=== PATIENT | male | born 1970 | race Hispanic/Latino ===

== ENCOUNTER 2024-06-04 13:47 | Emergency (ER) | payer MEDICARE, SELFPAY ==
--- OUTSIDE RECORDS SUMMARY | 2024-06-04 13:49 | XMS_ITS | Encounter Summary ---
Author Organization [facility] Address [address] [place] [address] Phone Care Team Providers Care Accounting Auditor Name Role Phone Allie Hunter MD Primary Care Provider [phone] Arun Saleh MD Unavailable [phone] Lin Chau Primary Care Provider + Jennie Payne OPTICAL GOODS WORKER Unavailable Unavailab Marion Albert APRN, ACCOUNTING FILE CLERK Unavailable +- [phone] Hortencia Galvez DO Primary Care Provider [phone] Reason for Visit * Reason Comments Medication Refill Encounter Details Date Type Department Care Team (Late st Contact Info) Description 02/28/2023 Refill [facility] - [facility] [address] [place] [address] Allie Hunter MD [address] [place] [address] Medication Refill Social History Tobacco Use Types Packs/Day Years Used Date Smoking Tobacco: Former Cigarettes 1 33 0 12/19/1983 - 09/13/2016 Smokeless Tobacco: Never Alcohol Use Standard Drinks/Week Comments Yes 3 (1 standard drink = 0.6 oz pur e alcohol) Social PHQ-2 Answer Date Recorded Total Score - Questions 1-9 0 04/2022 Education Answer Date Recorded What is the highest level of school you have completed or the highest degree you have received? Bachelor's degree (e.g., BA, AB, BS) 07/01/2020 Sexually Active Control Partners Comments Yes None Female Sex and Gender Information Value Date Recorded Sex Assigned at Not on file Legal Sex Male 10:26 PM CDT Gender Identity Not on file Sexual Orientation Not on file COVID-19 Exposure Response Date Recorded In the last 10 days, have yo u been in contact with someone who was confirmed or suspected to have Coronavirus/COVID-19? No / Unsure 02/25/2023 1:57 PM RESEARCH COORDINATOR documented as of this encounter Miscellaneous Notes * Telephone Encounter - Spring Leung RN - 02/28/2023 12:40 PM RESEARCH COORDINATOR Medication failed the protocol, provider to review and approve the medication order if appropriate. Requested Prescriptions Pending Prescriptions Disp Refills amitriptyline (ELAVIL) 25 MG Tablet [Pharmacy Med Name: Amitriptyline HCl 25 MG Oral Tablet] 90 Tablet 0 Sig: TAKE 1 TABLET BY MOUTH NIGHTLY Not Delegated - Tricyclic Agents Protocol Failed - 02/28/2023 12:38 PM Failed - This refill cannot be delegated Passed - Visit with relevant provider in past 12 months or upcoming 90 days Recent Visits Date Type Provider Dept 02/17/23 Office Visit Allie Hunter MD [facility] 08/27/22 Office Visit Allie Hunter MD [facility] 06/26/22 Office Visit Allie Hunter MD [facility] 06/17/22 Office Visit Hao Marley APRN, LIVE TRUCK TECHNICIAN [facility] [place] Showing recent visits within past 365 days and meeting all other requirements Future Appointments Date Type Provider Dept 04/07/23 Appointment Lin Chau, FARZAD [facility] [place] Showing future appointments within next 90 days and meeting all other requirements atorvastatin (LIPITOR) 40 MG Tablet [Pharmacy Med Name: Atorvastatin Calcium 40 MG Oral Tablet] 90 Tablet 0 Sig: Take 1 tablet by mouth once daily Hmg CoA Reductase Inhibitors Protocol Failed - 02/28/2023 12:38 PM Failed - CMP in past 12 months SODIUM Date Value Ref Range Status 02/22/2023 142 136 - 145 mmol/L Final POTASSIUM Date Value Ref Range Status 02/22/2023 4.9 3.5 - 5.1 mmol/L Final CHLORIDE Date Value Ref Range Status 02/22/2023 106 98 - 107 mmol/L Final CO2, VENOUS Date Value Ref Range Status 02/22/2023 26 22 - 30 mmol/L Final ANION GAP Date Value Ref Range Status 02/22/2023 14.9 <18.0 mmol/L Final GLUCOSE Date Value Ref Range Status 02/22/2023 88 70 - 99 mg/dL Final BUN Date Value Ref Range Status 02/22/2023 10 8 - 26 mg/dL Final CREATININE - POCT Date Value Ref Range Status 10/14/2022 1.0 0.6 - 1.3 mg/dL Final CREATININE, BLOOD Date Value Ref Range Status 02/22/2023 1.01 0.70 - 1.30 mg/dL Final BUN/CREATININE RATIO Date Value Ref Range Status 02/22/2023 10 (L) 12 - 20 ratio Final TOTAL PROTEIN Date Value Ref Range Status 11/03/2022 7.0 6.0 - 8.3 g/dL Final ALBUMIN Date Value Ref Range Status 11/03/2022 4.2 3.5 - 5.0 g/dL Final Comment: The colormetric methods used for the determination of Albumin may lead to falsely elevated test results in patients suffering from renal failure or insufficiency due to interference with other proteins. A/G RATIO Date Value Ref Range Status 11/03/2022 1.5 1.0 - 2.0 Final CALCIUM Date Value Ref Range Status 02/22/2023 9.4 8.7 - 10.5 mg/dL Final SGOT (AST) Date Value Ref Range Status 11/03/2022 34 <=40 U/L Final SGPT (ALT) Date Value Ref Range Status 11/03/2022 36 <=41 U/L Final ALKALINE PHOSPHATASE Date Value Ref Range Status 11/03/2022 124 40 - 130 U/L Final GFR, EST. NONAFRICAN Date Value Ref Range Status 02/22/2023 >60 >=60 Final GFR, EST. Date Value Ref Range Status 02/22/2023 >60 >=60 Final GFR, ESTIMATED Date Value Ref Range Status 02/22/2023 >60 >=60 Final Comment: Creatinine Clearance is the preferred criteria for selecting drug dose adjustments in renally impaired patients. The GFR is provided as additional pertinent clinical information. GFR is reported in mL/min/1.73 sq m. Calculation based on the Chronic Kidney Disease Epidemiology Collaboration (CKD- EPI) equation refitwithout adjustment for race. IS THE PATIENT REQUIRED TO BE FASTING? Date Value Ref Range Status 11/03/2022 No Final Passed - Visit with relevant provider in past 12 months or upcoming 90 days Recent Visits Date Type Provider Dept 02/17/23 Office Visit Allie Hunter MD [facility] [place] 08/27/22 Office Visit Allie Hunter MD [facility] 06/26/22 Office Visit Allie Hunter MD [facility] 06/17/22 Office Visit Hao Marley, LAP MAKER, LIVE TRUCK TECHNICIAN [facility] [place] Showing recent visits within past 365 days and meeting all other requirements Future Appointments Date Type Provider Dept 04/07/23 Appointment Lin Chau, PAC [facility] [place] Showing future appointments within next 90 days and meeting all other requirements Passed - Lipid panel in past 12 months LDL Date Value Ref Range Status 11/03/2022 63 5 - 130 mg/dL Final HDL CHOLESTEROL Date Value Ref Range Status 11/03/2022 43.3 >40 mg/dL Final CHOLESTEROL Date Value Ref Range Status 11/03/2022 137 <200 mg/dL Final TRIGLYCERIDES Date Value Ref Range Status 11/03/2022 156 (H) <150 mg/dL Final VLDL Date Value Ref Range Status 11/03/2022 31 5 - 55 mg/dL Final CHOL/HDL RATIO Date Value Ref Range Status 11/03/2022 3.2 0.0 - 4.4 Final NON-HDL CHOLESTEROL Date Value Ref Range Status 11/03/2022 93.7 <130 mg/dL Final ARCH COORDINATOR documented in this encounter Plan of Treatment Upcoming Encounters Date Type Department Care Team (Late st Contact Info) Description 06/09/2024 2:15 PM RESEARCH COORDINATOR Procedure Visit [facility] - Neurology [facility] [address] [place] [address] Arun Saleh MD [address] [place] [address] documented as of this encounter Visit Diagnoses Not on filedocumented in this encounter Additional Health Concerns Assessment Noted Time PHQ-9 Depression Total Score: 0 02/18/20 23 12:18 PM CDT documented as of this encounter Care Teams Accounting Auditor Relationship Specialty Start Date End Date Allie Hunter MD [address] [place] [address] PCP - General Family Medicine 10/16/15 05/11/23 Lin Chau, [facility] [address] [place] [address] PCP - General Physician Neonatal Intensive Care Nurse 05/12/23 04/06/24 Hortencia Galvez DO 2 [facility] [place] [address] [address] PCP - General Family Medicine 04/07/24 Arun Saleh MD [address] [place] [address] Consulting Physician Neurology 06/30/17 Jennie Payne, [place] Design Engineering Manager Lubricator Granulator 05/17/23 11/12/23 Marion Swanson APRN, ACCOUNTING FILE CLERK [address] [place] [address] Nurse Practitioner Advanced Practice Nurse 04/01/22 documented as of this encounter
--- OUTSIDE RECORDS SUMMARY | 2024-06-04 13:49 | XMS_ITS | Encounter Summary ---
Author Organization [facility] Address [address] [place] [address] Phone Care Team Providers Care Referral Clerk Name Role Phone Allie Hutner MD Primary Care Provider [phone] Arun Saleh MD Unavailable [phone] Lin Chau Primary Care Provider + Jennie Payne STOCK BROKER SUPERVISOR Unavailable Unavailab Marion Albert APRN, NEW MEDIA STRATEGIST Unavailable [phone]- [phone] Hortencia Galvez DO Primary Care Provider [phone] Reason for Visit * Reason Comments Medication Refill Encounter Details Date Type Department Care Team (Late st Contact Info) Description 05/06/2022 Refill [facility] - Family Medicine [facility] [address] [place] [address] Allie Hunter MD [address] [place] [address] Medication Refill Social History Tobacco Use Types Packs/Day Years Used Date Smoking Tobacco: Former Cigarettes 1 33 0 12/19/1983 - 09/13/2016 Smokeless Tobacco: Never Alcohol Use Standard Drinks/Week Comments Yes 3 (1 standard drink = 0.6 oz pur e alcohol) Social PHQ-2 Answer Date Recorded Total Score - Questions 1-9 5 07/0 09/2021 Education Answer Date Recorded What is the [...] on file Sexual Orientation Not on file documented as of this encounter Miscellaneous Notes * Telephone Encounter - Danni Contreras RN - 05/06/2022 9:28 AM CST Medication failed the protocol, provider to review and approve the medication order if appropriate. Requested Prescriptions Pending Prescriptions Disp Refills Diclofenac Sodium (VOLTAREN) 1 % Gel [Pharmacy Med Name: DICLOFENAC SODIUM 1% GEL] 100 g 1 Sig: APPLY ONE GRAM 3-4 TIMES DAILY TO PAINFUL AREA Topical Anti-inflammatory Protocol Passed - 05/06/2022 12:36 AM Passed - Visit with relevant provider in past 12 months or upcoming 90 days Recent Visits Date Type Provider Dept 02/24/22 Office Visit Allie Hunter MD [facility] 10/22/21 Office Visit Allie Hunter MD [facility] 07/23/21 Office Visit Allie Hunter MD [facility] 05/14/21 Office Visit Allie Hunter MD [facility] [place] Showing recent visits within past 365 days and meeting all other requirements Future Appointments No visits were found meeting these conditions. Showing future appointments within next 90 days and meeting all other requirements CY MANAGER documented in this encounter Plan of Treatment Upcoming Encounters Date Type Department Care Team (Late st Contact Info) Description 06/09/2024 2:15 PM AGENCY MANAGER [facility] [place] [address] [place] [address] Arun Saleh MD [address] [place] [address] documented as of this encounter Visit Diagnoses Not on filedocumented in this encounter Additional Health Concerns Assessment Noted Time PHQ-9 Depression Total Score: 5 10/23/19 22 2:00 PM CDT documented as of this encounter Care Teams Referral Clerk Relationship Specialty Start Date End Date Allie Hunter MD [address] [place] [address] PCP - General Family Medicine 10/16/15 05/11/23 Lin Chau PAC [address] [place] [address] PCP - General Physician Mud Car Worker 05/12/23 04/06/24 Hortencia Galvez, [address] [address] PCP - General Family Medicine 04/07/24 Arun Saleh MD [address] [place] [address] Consulting Physician Neurology 06/30/17 Jennie Payne, STOCK BROKER SUPERVISOR [place] Holistic Health Practitioner Motor Vehicles Inspector 05/17/23 11/12/23 Marion Swanson, METALIZING MACHINE OPERATOR, NEW MEDIA STRATEGIST [address] [place] [address] Nurse Practitioner Advanced Practice Nurse 04/01/22 documented as of this encounter
--- OUTSIDE RECORDS SUMMARY | 2024-06-04 13:49 | XMS_ITS | Clinical Summary ---
Author Organization [facility] [id number] [facility] Address [address] [place] [address] Care Team Providers Care Canal Equipment Mechanic Name Role Phone Allie Hunter MD Primary Care Provider [phone] Yakov Friend RN Unavailable UnavailJuan R Hanley MD Unavailable [phone] Allergies No known active allergies Medications SUMAtriptan (IMITREX) 100 mg tabletIndications :Migraine TAKE ONE TABLET BY MOUTH ONCE DAILY NEEDED FOR MIGRAINE. USE DIRECTED. MAY REPEAT DOSE IN 2 HOURS IF HEADACHE RECURS 8 Active naloxone (NARCAN) 4 mg/actuation spray,non-aerosol Administer 1 spray into affected nostril(s) as needed for opioid reversal or respiratory depression 1 each 1 Active tiZANidine (ZANAFLEX) 2 mg tabletIndications :Muscle Spasm Take 1 tablet (2 mg total) by mouth every 8 (eight) hours as needed for muscle spasms 90 tablet 2 1 Active losartan-hydroCHL OROthiazide (HYZAAR) 100-12.5 mg per tablet Take 1 tablet by mouth daily 2 Active UNABLE TO FIND Use as needed for pain 0 Active amitriptyline (ELAVIL) 25 mg tablet Take 1 tablet (25 mg total) by mouth nightly 3 Active aspirin 81 mg chewable tablet Take 1 tablet (81 mg total) by mouth daily 2 Active atorvastatin (LIPITOR) 40 mg tablet Take 1 tablet (40 mg total) by mouth daily 3 Active busPIRone (BUSPAR) 5 mg tablet Take 1 tablet (5 mg total) by mouth 3 (three) times a day 3 Active diclofenac sodium (VOLTAREN) 1 % gel APPLY ONE GRAM 3-4 TIMES DAILY TO PAINFUL AREA 3 Active erenumab-aooe (Aimovig Autoinjector) 140 mg/mL auto-injector Inject 1 mL (140 mg total) under the skin [address] (NexIUM) 40 mg capsule TAKE ONE CAPSULE BY MOUTH EVERY MORNING (BEFORE BREAKFAST) 3 Active ofloxacin (OCUFLOX) 0.3 % ophthalmic solution 3 Active oseltamivir (TAMIFLU) 75 mg capsule 3 Active tadalafiL (CIALIS) 20 mg tablet Take 1 tablet (20 mg total) by mouth as needed 3 Active topiramate (TOPAMAX) 25 mg tablet Take 1 tablet (25 mg total) by mouth 2 (two) times a day 3 Active Qulipta 60 mg tablet Take 1 tablet by mouth daily 4 Active onabotulinumtoxin A (BOTOX) 200 unit recon soln Inject 155 Units into the muscle as instructed 4 Active gabapentin (NEURONTIN) 600 mg tablet Take 1 tablet (600 mg total) by mouth 3 (three) times a day 4 Active traMADoL (ULTRAM) 50 mg tabletIndications :Lumbar radiculopathy,Cer vical radiculopathy Take 2 tablets (100 mg total) by mouth every 6 (six) hours as needed for pain 240 tablet 5 4 025 Active meloxicam (MOBIC) 15 mg tabletIndications :Lumbar radiculopathy,Cer vical radiculopathy Take 1 tablet (15 mg total) by mouth daily 30 tablet 5 4 025 Active Active Problems Problem Noted Date Diagnosed Date Numbness of right hand 05/06/2022 Chest pain 05/02/2021 09/16/2022 Dyslipidemia 05/02/2021 09/16/2022 Sacroiliitis 04/04/2020 Lumbar radiculopathy 10/18/2019 Degenerative disc disease, cervical 02/16/2019 Cervicalgia 02/02/2019 Cervical radiculopathy 02/02/2019 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 12/2018 Migraine without aura and wi thout status migrainosus, not intractable 07/13/2018 09/16/2022 Narcotic dependence, in remission ([facility]) 06/1809/16/2022 Former smoker 03/17/2017 09/16/2022 Chronic pain syndrome 01/22/2016 Anxiety 01/22/2016 09/16/2022 Male erectile disorder 09/02/2013 Overview (07/24/2016): ED (erectile dysfunction) Psychophysiological insomnia 09/02/2013 Overview (09/16/2022): Insomnia Major depressive disorder 09/02/2013 Overview (07/24/2016): Major depression Constipation 09/02/2013 Overview (07/24/2016): Constipation Hypogonadism in male 09/02/2013 Overview (07/24/2016): Hypogonadism male Migraine 09/02/2013 Overview (07/24/2016): Migraine Ankylosing spondylitis lumbar region 09/02/2013 Overview (07/24/2016): Lumbago Gastroesophageal reflux disease 09/02/2013 Overview (09/16/2022): GERD (gastroesophageal reflux disease) Tobacco dependence syndrome 09/02/2013 Overview (07/24/2016): Tobacco abuse Obstructive sleep apnea syndrome 09/02/2013 Overview (07/24/2016): MARLYN on CPAP Chronic rhinitis 09/02/2013 Overview (07/24/2016): Rhinitis, chronic Bleeding hemorrhoids 09/02/2013 Overview (07/24/2016): Bleeding hemorrhoids Mild chronic obstructive pulmonary disease 09/02 Overview (07/25/2016): COPD, mild Benign hypertension 03/15/2012 Overview (09/16/2022): Hypertension, benign Balanitis 03/01/2012 Overview (07/24/2016): Balanitis Surgical History Surgery Date Site/Laterality Comments SPINE SURGERY 04/19/2001 - 04/18/2002 Discectomy Medical History Medical History Date Comments Hx Other Medical chronic pain Sleep apnea Syncope Coronary artery disease Hyperlipidemia Asthma GERD (gastroesophageal reflux disease) Depression Arthritis Hypertension reports taking n o medication for HTN Neck pain Low back pain Peripheral neuropathy Gastric reflux Migraines Family History Medical History Relation Name Comments Rheum arthritis Brother 1 Rheum arthritis Brother 2 Arthritis Mother Alcohol abuse Other Heart disease Other Hypertension Other Mental illness Other Cancer Sister leukemia Relation Name Status Comments Brother 1 Alive Brother 2 Alive Father Alive Mother Other Sister Alive Social History Tobacco Use Types Packs/Day Years Used Date Smoking Tobacco: Former Cigarettes 1 37 Smokeless Tobacco: Never Comments:Quit September 2016 Alcohol Use Standard Drinks/Week Comments No 0 (1 standard drink = 0.6 oz pur e alcohol) PHQ-2 Answer Date Recorded PHQ-2 Total Score (If total score is 3 or more points, staff should administer the PHQ-9) 2 02/02/2024 Sex and Gender Information Value Date Recorded Sex Assigned at Not on file Legal Sex Male 10:21 AM MANAGER TARGET Gender Identity Male 05/06/2022 11:56 AM MANAGER TARGET Sexual Orientation Straight 05/06/2022 11 :56 AM MANAGER TARGET 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 Not on file Not on file Obstetrics History Last Filed Vital Signs Vital Sign Reading Time Taken Comments Blood Pressure 132/88 02/02/2024 3:45 PM CDT Pulse 72 02/02/2024 3:45 PM CDT Temperature 36.4 C (97.5 F) 06/22/2023 12:47 PM MANAGER TARGET Respiratory Rate 18 02/02/2024 3:45 PM CDT Oxygen Saturation 97% 02/02/2024 3:45 PM CDT Inhaled Oxygen Concentration - - Weight 90.7 kg (200 lb) 10/14/2023 2:40 PM CDT Height 170.2 cm (5' 7 ) 10/14/2023 2:40 PM CDT Body Mass Index 31.32 10/14/2023 2:40 PM CDT Plan of Treatment Health Maintenance Due Date Last Done Comments Prostate Cancer Screening-PSA 1970 Pneumococcal vaccine <65 (1 of 2 - PCV) 10/29/1975 Hepatitis B Screening 10/29/1987 Regular Well Visit/Exam 18-64 10/29/1987 Colon Cancer Screening-Colonoscopy 10/05/2019 10/04/2009 Influenza Vaccine (#1) 2023 3, 02/04/2022, 03/26/2021, Additional history exists Depression Screening 02/01/2025 02/02/2024, 02/02/2024, 08/03/2023, Additional history exists DTaP/Tdap/Td Vaccine (2 - Td or Tdap) 09/10/2032 09/10/2022 Colon Cancer Screening-CT Colonography Discontinued 10/04/2009 Colon Cancer Screening-DNA Stool Discontinued 10/05/19 10 Colon Cancer Screening-FIT Discontinued 10/04/2009 Colon Cancer Screening-Sigmoidoscopy Discontinued 10/04/2009 Hepatitis C Screening Completed 01/04/2018 Zoster Vaccine Completed 09/10/2022, 03/31/2022 Goals Goal Patient Goal Type Associated Problems Recent Progress Patient-Stated? Author BH-Pain Behavioral Health Worsening( 1:58 PM CDT) No Rhiannon Marie, RN Note: to be comfortable to enhance activities of daily living. Procedures Procedure Name Priority Date/Time Associated Diagnosis Comments HEPATITIS C ANTIBODY Routine 01/04/2018 1:51 PM CDT Chronic midline low back pain without sciatica HLA B27 positive Arthralgia, unspecified joint BMI 29.0-29.9,adult COLONOSCOPY 10/04/2009 12:00 AM CDT from Last 3 Months or Most Recently Relevant to Health Maintenance Results * Hepatitis C antibody (01/04/2018 1:51 PM CDT) Hep C Ab Non-Reactiv e Non-Reactiv e [facility] Blood specimen (specimen) 01/04/2018 1:51 PM CDT 01/04/2018 6:55 PM CDT Narrative [facility] - 01/04/2018 8:55 PM CDT us Yaneth Lau MD LAB MICROBIOLOGY - GENERAL ORDERABLES Final Result [facility] [address] [place] [address] * COLONOSCOPY (10/04/2009 12:00 AM CDT) Anatomical Region Laterality Modality Other Narrative 10/04/2009 12:00 AM CDT Ordered by an unspecified provider. Procedure Note Provider, MD Brittney - 10/04/2009 12:00 AM CDT PROCEDURE REPORT Patient: PRISCILLA SALDANA Account: [id number] Room No: : 1970 Patient Type: OPA Attend.: Juanito Norris M.D. Admit Date: 10/04/2009 Dict.: Juanito Norris M.D. Disch. Date: NAME OF PROCEDURE: Colonoscopy. DATE OF PROCEDURE: 10/04/09 REFERRING PHYSICIAN: Dr. Petra Cordero. PREVIOUS PROCEDURE: EGD. X-RAYS: None. HISTORY AND PHYSICAL EXAM: The patient is a 38-year-old malewith history of bright red blood per rectum and heme positive stools. He is taking Mobic at home. He has an EGD recently without significant abnormalities. We have been asked to see him now for endoscopicevaluation of his lower GI tract. PHYSICAL EXAMINATION: General: Is that of a well-developed,well-nourished male in no acute distress. He is nonicteric. Lungs: His lungsare clear. Heart: Regular without current JVD or pedal edema. GI: Soft, supple. Extremities: Showed no calf pain, cords or edema. PREPROCEDURE DIAGNOSIS: 1) Bright red blood per rectum with heme positive stools in [id number] male. 2) Mobic use. 3) Negative EGD recently. SURGEON: Juanito Norris M.D. INSTRUMENT USED: [employer] video endoscope. MEDICATIONS: Per anesthesia. FINDINGS: The colonoscope was introduced into the rectum lateralposition and passed to the cecum. The patient tolerated procedure well. Therewere no complications. On withdrawal of the colonoscope, there was somepunctate ulcerations and mild inflammatory changes in the right colon. Whetherthis is medication effect or not is uncertain. There has been no history of diarrhea. Several random biopsies were taken. The reminder of thececum, right, transverse and left colons were normal. The rectosigmoid wasnormal. In the rectum, there was some patchy erythema of questionablesignificance. Whether this is scope trauma versus others is uncertain. Two randombiopsies were taken. Retroflex view of the internal anal area showed smallinternal hemorrhoidal tissue. No perianal disease. No rectal masses. COMPLICATIONS: None. POSTPROCEDURE DIAGNOSES: 1) Punctate ulcerations with mild inflammatory changes, right colon,status post random biopsies of the same. Whether this is medication effect is uncertain. 2) Patchy erythema of the rectum of questionable significance, statuspost biopsy. 3) Bright red blood per rectum, consistent with perianal bleeding. POSTPROCEDURE ORDERS: 1) Post sedation instructions. 2) High fiber diet. 3) Hold Mobic. 4) Check biopsies. 5) Follow up with Dr. Cordero. 6) Three stools for blood in two months. Juanito Norris M.D. CARLOS ALBERTO/mack TD: 10/05/2009 11:21 CC: Petra Cordero M.D. PROCEDURE REPORT Authenticated by Juanito Norris MD On 10/09/2009 12:39:58 PM us Historical Provider ENDOSCOPY PROCEDURES Lilli l Result from Last 3 Months or Most Recently Relevant to Health Maintenance Insurance MEDICARE SOLUTIONS MEDIC[facility] SOLUTIONS [facility] MEDIC[facility] SOLUT[facility] Care Teams Canal Equipment Mechanic Relationship Specialty Start Date End Date Allie Hunter MD PCP - General 06/08/17 Yakov Friend, RN Registered Nurse 08/31/17 Juan R Ramesh MD [address] [place] [id number] Anesthesiologist Pain Management 03/04/22
--- OUTSIDE RECORDS SUMMARY | 2024-06-04 13:49 | XMS_ITS | Encounter Summary ---
Author Organization [facility] Address [address] [place] [address] Phone Care Team Providers Care Automatic Gluing Machine Operator Name Role Phone Arun Saleh MD Unavailable [phone] Lin Chau Primary Care Provider + Jennie Payne FIELD EDUCATION COORDINATOR Unavailable Unavailab Marion Albert APRN, POOL TABLE OPERATOR Unavailable + [phone] Hortencia Galvez DO Primary Care Provider [phone] Reason for Visit * Reason Comments Medication Refill Encounter Details Date Type Department Care Team (Late st Contact Info) Description 07/09/2023 Refill [facility] - Family Medicine [facility] [address] [place] [address] Allie Hunter MD [address] [place] [address] Medication Refill Social History Tobacco Use Types Packs/Day Years Used Date Smoking Tobacco: Former Cigarettes 1 33 0 12/19/1983 - 09/13/2016 Smokeless Tobacco: Never Alcohol Use Standard Drinks/Week Comments Yes 3 (1 standard drink = 0.6 oz pur e alcohol) Social C Utilities Answer Date Recorded In the past 12 months has th e electric, gas, oil, or water company threatened to shut off services in your home? Yes 05/27/2023 Social Connection and Isolat ion Panel [NHANES] Answer Date Recorded In a typical week, how many times do you talk on the phone with family, friends, or neighbors? More than three times a week 05/27/2023 How often do you get togethe r with friends or relatives? More than three times a week 05/27/2023 How often do you attend chur ch or hindu services? Never 05/27/2023 Do you belong to any clubs o r organizations such as druze groups, unions, fraternal or athletic groups, or school groups? No 05/27/2023 How often do you attend meet ings of the clubs or organizations you belong to? Never 05/27/2023 Are you , , di vorced, , never , or living with a partner? 05/27/2023 AUDIT-C Answer Date Recorded Q1: How often do you have a drink containing alc ohol? Monthly or less 05/27/2023 Q2: How many drinks containi ng alcohol do you have on a typical day when you are drinking? 1 or 2 05/27/2023 Q3: How often do you have si x or more drinks on one occasion? Never 05/27/2023 Overall Financial Resource Strain (CARDIA) Answe r Date Recorded How hard is it for you to pa y for the very basics like food, housing, medical care, and heating? Hard 05/27/2023 PHQ-2 Answer Date Recorded Total Score - Questions 1-9 2 11/2023 [facility] - Occupational Stress Questionnaire Answer Date Recorded Do you feel stress - tense, restless, nervous, or anxious, or unable to sleep at night because your mind is troubled all the time - these days? To some extent 05/27/2023 Exercise Vital Sign Answer Date Recorde d On average, how many days pe r week do you engage in moderate to strenuous exercise (like a brisk walk)? 3 days 05/27/2023 On average, how many minutes do you engage in exercise at this level? 30 min 05/27/2023 Hunger Vital Sign Answer Date Recorded Within the past 12 months, y ou worried that your food would run out before you got the money to buy more. Sometimes true Within the past 12 months, t he food you bought just didn't last and you didn't have money to get more. Sometimes true 11/2023 PRAPARE - Transportation Answer Date Re corded In the past 12 months, has l ack of transportation kept you from medical appointments or from getting medications? No 11/2023 In the past 12 months, has l ack of transportation kept you from meetings, work, or from getting things needed for daily living? No 05/27/2023 Housing Stability Vital Sign Answer Gavino e Recorded In the last 12 months, was t here a time when you were not able to pay the mortgage or rent on time? Yes 05/27/2023 In the last 12 months, how many places have you lived? 2 05/27/2023 In the last 12 months, was t here a time when you did not have a steady place to sleep or slept in a skilled nursing (including now)? No 05/27/2023 Education Answer Date Recorded What is the [...] encounter Miscellaneous Notes * Telephone Encounter - Judy Torres RN - 07/09/2023 1:59 PM CDT Medication(s) refilled and signed per [facility] Chronic Medication Refill Standing Order for Pediatricand Adult Patients. Requested Prescriptions Pending Prescriptions Disp Refills losartan-hydrochlorothiazide (HYZAAR) 100-12.5 MG Tablet [Pharmacy Med Name: Losartan Potassium-HCTZ 100-12.5 MG Oral Tablet] 90 Tablet 1 Sig: Take 1 tablet by mouth once daily ANGIOTENSIN-II RECEPTOR BLOCKERS-DIURETICS COMBO PROTOCOL Passed - 07/09/2023 11:27 AM Passed - Serum potassium on record in past 12 months POTASSIUM Date Value Ref Range Status 02/22/2023 4.9 3.5 - 5.1 mmol/L Final Passed - Serum sodium on record in past 12 months SODIUM Date Value Ref Range Status 02/22/2023 142 136 - 145 mmol/L Final Passed - BP on record in the past year Clinician-entered: BP Readings from Last 3 Encounters: 05/12/23 118/76 04/28/23 134/80 02/17/23 122/70 Patient-entered: No data recorded Passed - Visit with relevant provider in past year or upcoming 90 days Recent Visits Date Type Provider Dept 05/12/23 Office Visit Lin Chau PAC [facility] 02/17/23 Office [facility] 08/27/22 Office [facility] Showing recent visits within past 365 days and meeting all other requirements Future Appointments No visits were found meeting these conditions. Showing future appointments within next 90 days and meeting all other requirements Passed - GFR on record in past 12 months GFR, EST. NONAFRICAN Date Value Ref Range Status 02/22/2023 >60 >=60 Final documented in this encounter Plan of Treatment Upcoming Encounters Date Type Department Care Team (Late st Contact Info) Description 06/09/2024 2:15 PM FEDERAL LAW CLERK Procedure Visit [facility] [address] [place] [address] Arun Saleh MD [address] [place] [address] documented as of this encounter Visit Diagnoses Not on filedocumented in this encounter Additional Health Concerns Assessment Noted Time PHQ-9 Depression Total Score: 2 05/27/19 9:42 AM FEDERAL LAW CLERK documented as of this encounter Care Teams Automatic Gluing Machine Operator Relationship Specialty Start Date End Date Lin Chau PAC [address] [place] [address] PCP - General Physician Ribber 05/12/23 04/06/24 Hortencia Galvez, 2 [facility] [place] [address] [address] PCP - General Family Medicine 04/07/24 Arun Saleh MD Consulting Physician Neurology 06/30/17 Jennie Payne, FIELD EDUCATION COORDINATOR [place] Mortgage Sales Manager Decoration Checker 05/17/23 11/12/23 Marion Swanson, HEAD OF DRAMA, POOL TABLE OPERATOR [address] [place] [address] Nurse Practitioner Advanced Practice Nurse 04/01/22 documented as of this encounter
--- OUTSIDE RECORDS SUMMARY | 2024-06-04 13:49 | XMS_ITS | Encounter Summary ---
Author Organization [facility] Address [address] [place] [address] Phone Care Team Providers Care Hosting Engineer Name Role Phone Allie Hunter MD Primary Care Provider [phone] Arun Saleh MD Unavailable [phone] Lin Chau Primary Care Provider + Jennie Payne DOGMAN/WOMAN Unavailable Unavailab Marion Albert APRN, GAS REVERSER Unavailable +- [phone] Hortencia Galvez DO Primary Care Provider [phone] Reason for Visit * Reason Comments Medication Refill Encounter Details Date Type Department Care Team (Late st Contact Info) Description 07/22/2022 Refill [facility] - [facility] [address] [place] [address] Allie Hunter MD [address] [place] [address] Medication Refill Social History Tobacco Use Types [...] suspected to have Coronavirus/COVID-19? No / Unsure 06/26/2022 2:04 PM HEAD SILVERMAN documented as of this encounter Miscellaneous Notes * Telephone Encounter - Natalia Montemayor RN - 07/22/2022 1:01 PM CDT Medication failed the protocol, provider to review and approve the medication order if appropriate. Requested Prescriptions Pending Prescriptions Disp Refills amitriptyline (ELAVIL) 25 MG Tablet [Pharmacy Med Name: AMITRIPTYLINE HCL 25 MG TAB] 90 Tablet 2 Sig: TAKE 1 TABLET BY MOUTH NIGHTLY Not Delegated - Tricyclic Agents Protocol Failed - 07/22/2022 12:49 PM Failed - This refill cannot be delegated Passed - Visit with relevant provider in past 12 months or upcoming 90 days Recent Visits Date Type Provider Dept 06/26/22 Office Visit Allie Hunter MD [facility] 06/17/22 Office Visit Hao Marley APRN, [facility] 02/24/22 Office Visit Allie Hunter MD [facility] 10/22/21 Office Visit Allie Hunter MD [facility] 07/23/21 Office Visit Allie Hunter MD [facility] Showing recent visits within past 365 days and meeting all other requirements Future Appointments Date Type Provider Dept 08/27/22 Appointment Allie Hunter MD [facility] Showing future appointments within next 90 days and meeting all other requirements documented in this encounter Plan of Treatment Upcoming Encounters Date Type Department Care Team (Late st Contact Info) Description 06/09/2024 2:15 PM HEAD SILVERMAN Procedure Visit [facility] [address] [place] [address] Arun Saleh MD [address] [place] [address] documented as of this encounter Visit Diagnoses Not on filedocumented in this encounter Additional Health Concerns Assessment Noted Time PHQ-9 Depression Total Score: 5 10/23/19 22 2:00 PM CDT documented as of this encounter Care Teams Hosting Engineer Relationship Specialty Start Date End Date Allie Hunter MD [address] [place] [address] PCP - General Family Medicine 10/16/15 05/11/23 Lin Chau PAC [address] [place] [address] PCP - General Physician Model Maker Apprentice 05/12/23 04/06/24 Hortencia Galvez DO 2 [facility] [address] [address] PCP - General Family Medicine 04/07/24 Arun Saleh MD [address] [place] [address] Consulting Physician Neurology 06/30/17 Jennie Payne, DOGMAN/WOMAN [place] Paper Bag Making Machinist School Business Manager 05/17/23 11/12/23 Marion Swanson, CONVERTING TECHNICIAN, GAS REVERSER [address] [place] [address] Nurse Practitioner Advanced Practice Nurse 04/01/22 documented as of this encounter
--- OUTSIDE RECORDS SUMMARY | 2024-06-04 13:49 | XMS_ITS | Encounter Summary ---
Author Organization [facility] Address [address] [place] [address] Phone Care Team Providers Care Systems Integration Advisor Name Role Phone Arun Saleh MD Unavailable [phone] Marion Swanson APRN, LACE PINNER Unavailable + [phone] Hortencia Galvez DO Primary Care Provider [phone] Encounter Details Date Type Department Care Team (Late st Contact Info) Description 05/09/2024 Results Follow-Up [facility] - Family Medicine [facility] [address] [place] [address] Hortencia Galvez DO [address] [address] Social History Tobacco Use Types Packs/Day Years Used Date Smoking Tobacco: Former Cigarettes 1 33 0 12/19/1983 - 09/13/2016 Smokeless Tobacco: Never Alcohol Use Standard Drinks/Week Comments Yes 3 (1 standard drink = 0.6 oz pur e alcohol) Social [facility] Utilities Answer Date Recorded In the past 12 months has e electric, gas, oil, or water company [...] often do you attend chur ch or buddhism services? Never 05/27/2023 Do you belong to any clubs o r organizations such as lutheran groups, unions, fraternal or athletic groups, or [...] Total Score - Questions 1-9 2 11/2023 [facility] Occupat ional Health - Occupational [...] place to sleep or slept in a senior care (including now)? No 05/27/2023 Education Answer Date [...] on file documented as of this encounter Progress Notes * Beata Leija CMA - 05/09/2024 12:38 PM CST Patient aware EL WORKER documented in this encounter Plan of Treatment Upcoming Encounters Date Type Department Care Team (Late st Contact Info) Description 06/09/2024 2:15 PM KENNEL WORKER Procedure Visit [facility] - Neurology [facility] [address] [place] [address] Arun Saleh MD [address] [place] [address] documented as of this encounter Visit Diagnoses Not on filedocumented in this encounter Additional Health Concerns Assessment Noted Time PHQ-9 Depression Total Score: 2 05/27/19 24 9:42 AM KENNEL WORKER documented as of this encounter Care Teams Systems Integration Advisor Relationship Specialty Start Date End Date Hortencia Galvez DO 2 [facility] [place] [address] [address] PCP - General Family Medicine 04/07/24 Arun Saleh MD Consulting Physician Neurology 06/30/17 Marion Swanson APRN, LACE PINNER [address] [place] [address] Nurse Practitioner Advanced Practice Nurse 04/01/22 documented as of this encounter
--- OUTSIDE RECORDS SUMMARY | 2024-06-04 13:49 | XMS_ITS | Encounter Summary ---
Author Organization [facility] Address [address] [place] [address] Phone Care Team Providers Care Custom Decorating Consultant Name Role Phone Allie Hunter MD Primary Care Provider [phone] Arun Saleh MD Unavailable [phone] Lin Chau Primary Care Provider + Jennie Payne BEE BREEDER Unavailable Unavailab Marion Albert APRN, HOT PUNCH PRESS OPERATOR Unavailable [phone]- [phone] Hortencia Galvez DO Primary Care Provider [phone] Reason for Visit * Reason Comments Medication Refill Encounter Details Date Type Department Care Team (Late st Contact Info) Description 10/17/2022 Refill [facility] - Family Medicine [facility] [address] [place] [address] Allie Hunter MD [address] [place] [address] Medication Refill Social History Tobacco Use Types [...] suspected to have Coronavirus/COVID-19? No / Unsure 10/14/2022 3:43 PM CDT documented as of this encounter Miscellaneous Notes * Telephone Encounter - Spring Leung RN - 10/18/2022 12:02 PM CDT Medication failed the protocol, provider to review and approve the medication order if appropriate. Requested Prescriptions Pending Prescriptions Disp Refills busPIRone (BUSPAR) 5 MG Tablet [Pharmacy Med Name: BUSPIRONE HCL 5 MG TABLET] 270 Tablet 1 Sig: TAKE 1 TABLET BY MOUTH THREE TIMES A DAY Buspirone (6 Month Refill Only) Protocol Failed - 10/17/2022 7:53 AM Failed - Has an encounter in the past 6 months with a depression or anxiety visit diagnosis Passed - Visit with relevant provider in past 6 months or upcoming 90 days Recent Visits Date Type Provider Dept 08/27/22 Office Visit Allie Hunter MD [facility] 06/26/22 Office Visit Allie Hunter MD [facility] 06/17/22 Office Visit Hao Marley APRN, COUNTER HOP [facility] [place] Showing recent visits within past 182 days and meeting all other requirements Future Appointments No visits were found meeting these conditions. Showing future appointments within next 90 days and meeting all other requirements Passed - Patient has established therapy with Buspirone for at least 6 months documented in this encounter Plan of Treatment Upcoming Encounters Date Type Department Care Team (Late st Contact Info) Description 06/09/2024 2:15 PM STUDENT SUCCESS ADVISOR Procedure Visit [facility] - Neurology [facility] [address] [place] [address] Arun Saleh MD [address] [place] [address] documented as of this encounter Visit Diagnoses Not on filedocumented in this encounter Additional Health Concerns Assessment Noted Time PHQ-9 Depression Total Score: 5 10/23/19 22 2:00 PM CDT documented as of this encounter Care Teams Custom Decorating Consultant Relationship Specialty Start Date End Date Allie Hunter MD [address] [place] [address] PCP - General Family Medicine 10/16/15 05/11/23 Lin Chau PAC [address] [place] [address] PCP - General Physician Terminal Computer Operator 05/12/23 04/06/24 Hortencia Galvez DO [address] [address] PCP - General Family Medicine 04/07/24 Arun Saleh MD [address] [place] [address] Consulting Physician Neurology 06/30/17 Jennie Payne, BEE BREEDER [place] Picking Table Worker Kaitara Taraka 05/17/23 11/12/23 Marion Swanson APRN, HOT PUNCH PRESS OPERATOR [address] [place] [address] Nurse Practitioner Advanced Practice Nurse 04/01/22 documented as of this encounter
--- OUTSIDE RECORDS SUMMARY | 2024-06-04 13:49 | XMS_ITS | Encounter Summary ---
Author Organization [facility] Address [address] [place] [address] Phone Care Team Providers Care Manufacturing Quality Technician Name Role Phone Allie Hunter MD Primary Care Provider [phone] Arun Saleh MD Unavailable [phone] Lin Chau Primary Care Provider + Jennie Payne APPLICATION ASSISTANT Unavailable Unavailab Marion Albert APRN, PUBLIC RELATIONS WRITER Unavailable +- [phone] Hortencia Galvez DO Primary Care Provider [phone] Reason for Visit * Reason Comments Medication Refill Encounter Details Date Type Department Care Team (Late st Contact Info) Description 07/30/2021 Refill [facility] S[facility] [address] [place] [id number] Allie Hunter MD [address] [place] [address] Medication Refill Social History Tobacco Use Types Packs/Day Years Used Date Smoking Tobacco: Former Cigarettes 1 33 0 12/19/1983 - 09/13/2016 Smokeless Tobacco: Never Alcohol Use Standard Drinks/Week Comments Yes 3 (1 standard drink = 0.6 oz pur e alcohol) Social PHQ-2 Answer Date Recorded Total Score - Questions 1-9 0 04/20 Education Answer Date Recorded What is the [...] suspected to have Coronavirus/COVID-19? No / Unsure 07/23/2021 8:40 AM CDT documented as of this encounter Miscellaneous Notes * Telephone Encounter - Judy Torres RN - 07/30/2021 2:59 PM CDT Name from pharmacy: SENNA 8.6 MG TABLET Will file in chart as: senna 8.6 MG Tablet The original prescription was discontinued on 05/14/2021 by Allie Hunter MD for the followingreason: Therapy completed. documented in this encounter Plan of Treatment Upcoming Encounters Date Type Department Care Team (Late st Contact Info) Description 06/09/2024 2:15 PM REELER OPERATOR Procedure Visit [facility] - Neurology [facility] [address]2 [place] [address] Arun Saleh MD [address] [place] [address] documented as of this encounter Visit Diagnoses Not on filedocumented in this encounter Additional Health Concerns Assessment Noted Time PHQ-9 Depression Total Score: 0 04/25/19 21 2:59 PM REELER OPERATOR documented as of this encounter Care Teams Manufacturing Quality Technician Relationship Specialty Start Date End Date Allie Hunter MD #2 [facility] [place] [address] PCP - General Family Medicine 10/16/15 05/11/23 Lin Chau PAC [address] [place] [address] PCP - General Physician Range Management Specialist 05/12/23 04/06/24 Hortencia Galvez DO [address] [address] PCP - General Family Medicine 04/07/24 Arun Saleh MD [address] [place] [address] Consulting Physician Neurology 06/30/17 Jennie Payne, APPLICATION ASSISTANT [place] Morphologist Tinning Equipment Tender 05/17/23 11/12/23 Marion Swanson, SUPERVISOR MAPPING, PUBLIC RELATIONS WRITER [address] [place] [address] Nurse Practitioner Advanced Practice Nurse 04/01/22 documented as of this encounter
--- OUTSIDE RECORDS SUMMARY | 2024-06-04 13:49 | XMS_ITS | Encounter Summary ---
Author Organization [facility] Address [address] [place] [address] Phone Care Team Providers Care Bakery Assistant Name Role Phone Allie Hunter MD Primary Care Provider [phone] Arun Saleh MD Unavailable [phone] Lin Chau Primary Care Provider + Jennie Payne PRODUCTION CREW SUPERVISOR Unavailable Unavailab Marion Albert APRN, SECURITY SYSTEM TECHNICIAN Unavailable [phone]- [phone] Hortencia Galvez DO Primary Care Provider [phone] Reason for Visit * Reason Comments Medication Refill Encounter Details Date Type Department Care Team (Late st Contact Info) Description 03/16/2022 Refill [facility] - Family Medicine [facility] #2 [place] [address] Allie Hunter MD [address] [place] [address] Medication Refill Social History Tobacco Use Types [...] suspected to have Coronavirus/COVID-19? No / Unsure 02/24/2022 12:49 PM SOFTWARE DEVELOPMENT LEADER documented as of this encounter Miscellaneous Notes * Telephone Encounter - Judy Torres RN - 03/16/2022 2:47 PM CST Medication failed the protocol, provider to review and approve the medication order if appropriate. Requested Prescriptions Pending Prescriptions Disp Refills tadalafil (CIALIS) 20 MG Tablet [Pharmacy Med Name: TADALAFIL 20 MG TABLET] 30 Tablet 0 Sig: Take 1 Tablet by mouth as needed for Erectile Dysfunction. Erectile Dysfunction Medication Protocol Failed - 03/16/2022 12:51 PM Failed - Erectile dysfunction on problem list Passed - Visit with relevant provider in past 12 months or upcoming 90 days Recent Visits Date Type Provider Dept 02/24/22 Office Visit Allie Hunter MD [facility] 10/22/21 Office Visit Allie Hunter MD [facility] 07/23/21 Office Visit Allie Hunter MD [facility] 05/14/21 Office Visit Allie Hunter MD [facility] 03/26/21 Office Visit Lin Chau PAC [facility] Showing recent visits within past 365 days and meeting all other requirements Future Appointments No visits were found meeting these conditions. Showing future appointments within next 90 days and meeting all other requirements Passed - Absence of nitrates on med list WARE DEVELOPMENT LEADER documented in this encounter Plan of Treatment Upcoming Encounters Date Type Department Care Team (Late st Contact Info) Description 06/09/2024 2:15 PM SOFTWARE DEVELOPMENT LEADER Procedure Visit [facility] #[address] [place] [address] Arun Saleh MD [address] [place] [address] documented as of this encounter Visit Diagnoses Not on filedocumented in this encounter Additional Health Concerns Assessment Noted Time PHQ-9 Depression Total Score: 5 10/23/19 22 2:00 PM CDT documented as of this encounter Care Teams Bakery Assistant Relationship Specialty Start Date End Date Allie Hunter MD [address] [place] [address] PCP - General Family Medicine 10/16/15 05/11/23 Lin Chau PAC [address] [place] [address] PCP - General Physician Engineering Inspector 05/12/23 04/06/24 Hortencia Galvez DO [address] [address] PCP - General Family Medicine 04/07/24 Arun Saleh MD [address] [place] [address] Consulting Physician Neurology 06/30/17 Jennie Payne, PRODUCTION CREW SUPERVISOR [place] Remote Sensing Analyst Boat Mechanic 05/17/23 11/12/23 Marion Swanson, DEALER ANALYST, SECURITY SYSTEM TECHNICIAN [address] [place] [address] Nurse Practitioner Advanced Practice Nurse 04/01/22 documented as of this encounter
--- OUTSIDE RECORDS SUMMARY | 2024-06-04 13:49 | XMS_ITS | Encounter Summary ---
Author Organization [facility] Address [address] [place] [address] Phone Care Team Providers Care Refining Machine Operator Name Role Phone Arun Saleh MD Unavailable [phone] Lin Chau PAC Primary Care Provider + Jennie Payne BUSINESS ANALYTICS MANAGER Unavailable Unavailab Marion Albert APRN, FUEL TRUCK DRIVER Unavailable + [phone] Hortencia Galvez DO Primary Care Provider [phone] Reason for Visit * Reason Comments Medication Refill Encounter Details Date Type Department Care Team (Late st Contact Info) Description 10/10/2023 Refill [facility] - Family Medicine [facility] [address] [place] [address] Lin Chau, PAC [address] [place] [address] Medication Refill Social History Tobacco Use Types Packs/Day Years Used Date Smoking Tobacco: Former Cigarettes 1 33 0 12/19/1983 - 09/13/2016 Smokeless Tobacco: Never Alcohol Use Standard Drinks/Week Comments Yes 3 (1 standard drink = 0.6 oz pur e alcohol) Social [facility] Utilities Answer Date Recorded In the past [...] often do you attend chur ch or faith services? Never 05/27/2023 Do you belong to any clubs o r organizations such as hoahaoism groups, unions, fraternal or athletic groups, or [...] Total Score - Questions 1-9 2 11/2023 [facility] of Occupat ional Health - Occupational Stress [...] place to sleep or slept in a halfway (including now)? No 05/27/2023 Education Answer Date [...] Telephone Encounter - Spring Leung RN - 10/10/2023 11:37 AM CDT Per nursing clinical judgement, provider to review and approve the medication(s) order(s) if appropriate. Requested Prescriptions Pending Prescriptions Disp Refills Diclofenac Sodium (VOLTAREN) 1 % Gel [Pharmacy Med Name: DICLOFENAC SODIUM 1% GEL] 100 g 1 Sig: APPLY 1 GRAM TO PAINFUL AREA 3 TO 4 TIMES PER DAY Topical Anti-inflammatory Protocol Passed - 10/10/2023 7:22 AM Passed - Visit with relevant provider in past 12 months or upcoming 90 days Recent Visits Date Type Provider Dept 05/12/23 Office Visit Lin Chau, FARZAD Emery 02/17/23 Office Visit Allie Hunter MD [facility] Showing recent visits within past 365 days and meeting all other requirements Future Appointments Date Type Provider Dept 11/11/23 Appointment [facility] Showing future appointments within next 90 days and meeting all other requirements documented in this encounter Plan of Treatment Upcoming Encounters Date Type Department Care Team (Late st Contact Info) Description 06/09/2024 2:15 PM PERSONAL LINES ACCOUNT EXECUTIVE Procedure Visit [facility] - Neurology [facility] [address] [place] [address] Arun Saleh MD [address] [place] [address] documented as of this encounter Visit Diagnoses Not on filedocumented in this encounter Additional Health Concerns Assessment Noted Time PHQ-9 Depression Total Score: 2 05/27/19 24 9:42 AM PERSONAL LINES ACCOUNT EXECUTIVE documented as of this encounter Care Teams Refining Machine Operator Relationship Specialty Start Date End Date Lin Chau PAC [address] [place] [address] PCP - General Physician Multiple Launch Rocket System Crewmember 05/12/23 04/06/24 Hortencia Galvez DO [address] [address] PCP - General Family Medicine 04/07/24 Arun Saleh MD Consulting Physician Neurology 06/30/17 Jennie Payne, BUSINESS ANALYTICS MANAGER [place] Supervisor Case Loading Corset Fitter 05/17/23 11/12/23 Marion Swanson, COOLER TENDER, FUEL TRUCK DRIVER [address] [place] [address] Nurse Practitioner Advanced Practice Nurse 04/01/22 documented as of this encounter
--- OUTSIDE RECORDS SUMMARY | 2024-06-04 13:49 | XMS_ITS | Encounter Summary ---
Author Organization [facility] Address [address] [place] [address] Phone Care Team Providers Care Casting House Laborer Name Role Phone Arun Saleh MD Unavailable [phone] Lin Chau Primary Care Provider + Jennie Payne LEAD SYSTEMS ARCHITECT Unavailable Unavailab Marion Albert APRN, UNDERWEAR HEMMER Unavailable + [phone] Hortencia Galvez DO Primary Care Provider [phone] Reason for Visit * Reason Comments Medication Refill Encounter Details Date Type Department Care Team (Late st Contact Info) Description 07/20/2023 Refill [facility] Medical [facility] - Family Medicine - [place] [address] [place] [address] Quyen Murray APRN, PHOTOGRAMMETRIST [address] [address] Medication Refill Social History Tobacco Use Types Packs/Day Years Used Date Smoking Tobacco: Former Cigarettes 1 33 0 12/19/1983 - 09/13/2016 Smokeless Tobacco: Never Alcohol Use Standard Drinks/Week Comments Yes 3 (1 standard drink = 0.6 oz pur e alcohol) Social [facility] Utilities Answer Date Recorded In the past 12 months has e [employer], gas, oil, or water [employer] threatened to shut off services in your [...] often do you attend chur ch or uatsdin services? Never 05/27/2023 Do you belong to any clubs o r organizations such as mosque groups, unions, fraternal or athletic groups, or [...] Score - Questions 1-9 2 11/2023 [facility] of Occupat ional Health - Occupational Stress [...] place to sleep or slept in a correction (including now)? No 05/27/2023 Education Answer Date [...] encounter Miscellaneous Notes * Telephone Encounter - Danica Enriquez RMA - 07/22/2023 12:45 PM CDT Pt notified, vu * Telephone Encounter - Lin Chau PAC - 07/22/2023 5:54 AM CDT Approved, notify patient do not use this with oral NSAIDs * Telephone Encounter - Judy Torres RN - 07/21/2023 12:12 PM CDT Medication warning Per nursing clinical judgement, provider to review and approve the medication(s) order(s) if appropriate. Requested Prescriptions Pending Prescriptions Disp Refills Diclofenac Sodium (VOLTAREN) 1 % Gel [Pharmacy Med Name: DICLOFENAC SODIUM 1% GEL] 100 g 0 Sig: APPLY 1 GRAM TO PAINFUL AREA 3 TO 4 TIMES PER DAY Topical Anti-inflammatory Protocol Passed - 07/20/2023 7:26 PM Passed - Visit with relevant provider in past 12 months or upcoming 90 days Recent Visits Date Type Provider Dept 05/12/23 Office Visit Lin Chau PAC [facility] [place] 02/17/23 [facility]22 Office Visit Allie Hunter MD [facility] [place] Showing recent visits within past 365 days and meeting all other requirements Future Appointments No visits were found meeting these conditions. Showing future appointments within next 90 days and meeting all other requirements documented in this encounter Plan of Treatment Upcoming Encounters Date Type Department Care Team (Late st Contact Info) Description 06/09/2024 2:15 PM CONSTRUCTION MATERIALS TESTER Procedure Visit [facility] - Neurology [facility] [address] [place] [address] Arun Saleh MD [address] [place] [address] documented as of this encounter Visit Diagnoses Not on filedocumented in this encounter Additional Health Concerns Assessment Noted Time PHQ-9 Depression Total Score: 2 05/27/19 24 9:42 AM CONSTRUCTION MATERIALS TESTER documented as of this encounter Care Teams Casting House Laborer Relationship Specialty Start Date End Date Lin Chau PAC [address] [place] [address] PCP - General Physician Strategic Client Executive 05/12/23 04/06/24 Hortencia Galvez DO 2 [facility] [address] [place] [address] PCP - General Family Medicine 04/07/24 Arun Saleh MD Consulting Physician Neurology 06/30/17 Jennie Payne, GIULIANA [place] Transition Advisor Business Development Intern 05/17/23 11/12/23 Marion Swanson, INSIDE PHONE SALES, UNDERWEAR HEMMER [address] [place] [address] Nurse Practitioner Advanced Practice Nurse 04/01/22 documented as of this encounter
--- OUTSIDE RECORDS SUMMARY | 2024-06-04 13:49 | XMS_ITS | Encounter Summary ---
Author Organization [facility] Address [address] [place] [address] Phone Care Team Providers Care Ship Wirer Name Role Phone Arun Saleh MD Unavailable [phone] Lin Chau PAC Primary Care Provider + Jennie Payne VENDOR SPECIALIST Unavailable Unavailab Marion Albert APRN, INSULATION BLANKET MAKER Unavailable + [phone] Hortencia Galvez DO Primary Care Provider [phone] Reason for Visit * Reason Comments Medication Refill Encounter Details Date Type Department Care Team (Late st Contact Info) Description 08/14/2023 Refill [facility] - Family Medicine [facility] [address] [place] [address] Lin Chau, PAC [address] [place] [address] Medication Refill Social History Tobacco Use Types Packs/Day Years Used Date Smoking Tobacco: Former Cigarettes 1 33 0 12/19/1983 - 09/13/2016 Smokeless Tobacco: Never Alcohol Use Standard Drinks/Week Comments Yes 3 (1 standard drink = 0.6 oz pur e alcohol) Social [facility] Utilities Answer Date Recorded In the past [...] often do you attend chur ch or orthodox services? Never 05/27/2023 Do you belong to any clubs o r organizations such as adventism groups, unions, fraternal or athletic groups, or [...] Total Score - Questions 1-9 2 11/2023 [facility] of Occupat ional Health - [...] place to sleep or slept in a snf (including now)? No 05/27/2023 Education Answer Date [...] Telephone Encounter - Judy Torres RN - 08/16/2023 9:17 AM CDT Per nursing clinical judgement, provider to review and approve the medication(s) order(s) if appropriate. Requested Prescriptions Pending Prescriptions Disp Refills Diclofenac Sodium (VOLTAREN) 1 % Gel [Pharmacy Med Name: DICLOFENAC SODIUM 1% GEL] 100 g 1 Sig: APPLY 1 GRAM TO PAINFUL AREA 3 TO 4 TIMES PER DAY Topical Anti-inflammatory Protocol Passed - 08/14/2023 7:15 AM Passed - Visit with relevant provider in past 12 months or upcoming 90 days Recent Visits Date Type Provider Dept 05/12/23 Office Visit Lin Chau, FARZAD Emery 02/17/23 [facility]22 Office Visit Allie Hunter MD [facility] Showing recent visits within past 365 days and meeting all other requirements Future Appointments Date Type Provider Dept 11/11/23 Appointment Lin Chau PAC [facility] Showing future appointments within next 90 days and meeting all other requirements documented in this encounter Plan of Treatment Upcoming Encounters Date Type Department Care Team (Late st Contact Info) Description 06/09/2024 2:15 PM DIE DESIGNER Procedure Visit [facility] - Neurology - [place] [address] [place] [address] Arun Saleh MD [address] [place] [address] documented as of this encounter Visit Diagnoses Not on filedocumented in this encounter Additional Health Concerns Assessment Noted Time PHQ-9 Depression Total Score: 2 05/27/19 9:42 AM DIE DESIGNER documented as of this encounter Care Teams Ship Wirer Relationship Specialty Start Date End Date Lin Chau PAC [address] [place] [address] PCP - General Physician Lastex Operator 05/12/23 04/06/24 Hortencia Galvez DO [address] [address] PCP - General Family Medicine 04/07/24 Arun Saleh MD Consulting Physician Neurology 06/30/17 Jennie Payne, VENDOR SPECIALIST [place] Sewer Hand Yard Laborer 05/17/23 11/12/23 Marion Swanson APRN, INSULATION BLANKET MAKER [address] [place] [address] Nurse Practitioner Advanced Practice Nurse 04/01/22 documented as of this encounter
--- OUTSIDE RECORDS SUMMARY | 2024-06-04 13:49 | XMS_ITS | Encounter Summary ---
Author Organization [facility] Address [address] [address] Phone Care Team Providers Care Convex Grinder Name Role Phone Allie Hunter MD Primary Care Provider [phone] Arun Saleh MD Unavailable [phone] Lin Chau Primary Care Provider + Jennie Payne ACCOUNTS PAYABLE ASSOCIATE Unavailable Unavailab Marion Albert APRN, WATCH ELECTRICIAN Unavailable +[phone] Hortencia Galvez DO Primary Care Provider [phone] Reason for Visit * Reason Comments Medication Refill Encounter Details Date Type Department Care Team (Late st Contact Info) Description 09/01/2022 Refill [facility] - Family Medicine [facility] [address] [place] [address] Allie Hunter MD [address] [place] [address] Medication Refill Social History Tobacco Use Types [...] suspected to have Coronavirus/COVID-19? No / Unsure 08/27/2022 1:27 PM CDT documented as of this encounter Miscellaneous Notes * Telephone Encounter - Edith Rubio RN - 09/02/2022 11:21 AM CDT Do you want to refill this medication? Medication failed the protocol, provider to review and approve the medication order if appropriate. Requested Prescriptions Pending Prescriptions Disp Refills tadalafil (CIALIS) 20 MG Tablet [Pharmacy Med Name: TADALAFIL 20 MG TABLET] 30 Tablet 0 Sig: TAKE 1 TABLET BY MOUTH NEEDED FOR ERECTILE DYSFUNCTION Erectile Dysfunction Medication Protocol Failed - 09/01/2022 11:40 AM Failed - Erectile dysfunction on problem list Passed - Visit with relevant provider in past 12 months or upcoming 90 days Recent Visits Date Type Provider Dept 08/27/22 Office Visit Allie Hunter MD [facility] 06/26/22 Office Visit Allie Hunter MD [facility] 06/17/22 Office Visit Hao Marley APRN, [facility]y 02/24/22 Office Visit Allie Hunter MD [facility] 10/22/21 [facility] [place] Showing recent visits within past 365 days and meeting all other requirements Future Appointments No visits were found meeting these conditions. Showing future appointments within next 90 days and meeting all other requirements Passed - Absence of nitrates on med list * Telephone Encounter - Edith Rubio RN - 09/02/2022 11:20 AM CDT Medication failed the protocol, provider to review and approve the medication order if appropriate. Requested Prescriptions Pending Prescriptions Disp Refills tadalafil (CIALIS) 20 MG Tablet [Pharmacy Med Name: TADALAFIL 20 MG TABLET] 30 Tablet 0 Sig: TAKE 1 TABLET BY MOUTH NEEDED FOR ERECTILE DYSFUNCTION Erectile Dysfunction Medication Protocol Failed - 09/01/2022 11:40 AM Failed - Erectile dysfunction on problem list Passed - Visit with relevant provider in past 12 months or upcoming 90 days Recent Visits Date Type Provider Dept 08/27/22 Office Visit Allie Hunter MD [facility] 06/26/22 Office Visit Allie Hunter MD [facility] 06/17/22 Office Visit Hao Marley APRN, CNP [facility] [place] 02/24/22 Office Visit Allie Hunter MD [facility] 10/22/21 Office Visit Allie Hunter MD [facility] [place] Showing recent visits within past 365 days and meeting all other requirements Future Appointments No visits were found meeting these conditions. Showing future appointments within next 90 days and meeting all other requirements Passed - Absence of nitrates on med list documented in this encounter Plan of Treatment Upcoming Encounters Date Type Department Care Team (Late st Contact Info) Description 06/09/2024 2:15 PM RUNNER WORKER Procedure [facility] - Neurology - [place] [address] [place] [address] Arun Saleh MD [address]2 [facility] [place] [place] [id number] documented as of this encounter Visit Diagnoses Not on filedocumented in this encounter Additional Health Concerns Assessment Noted Time PHQ-9 Depression Total Score: 5 10/23/19 22 2:00 PM CDT documented as of this encounter Care Teams Convex Grinder Relationship Specialty Start Date End Date Allie Hunter MD [address] [place] [address] PCP - General Family Medicine 10/16/15 05/11/23 Lin Chau PAC [address] [place] [address] PCP - General Physician Fabricator Artificial Breast 05/12/23 04/06/24 Hortencia Galvez DO [address] [address] PCP - General Family Medicine 04/07/24 Arun Saleh MD [address] [place] [address] Consulting Physician Neurology 06/30/17 Jennie Payne, [facility] Kitchen Mechanic Case Planner 05/17/23 11/12/23 Marion Swanson APRN, WATCH ELECTRICIAN [address] [place] [address] Nurse Practitioner Advanced Practice Nurse 04/01/22 documented as of this encounter
--- OUTSIDE RECORDS SUMMARY | 2024-06-04 13:49 | XMS_ITS | Encounter Summary ---
Author Organization [facility] Address [address] [place] [address] Phone Care Team Providers Care Hot Plate Plywood Press Feeder Name Role Phone Allie Hunter MD Primary Care Provider [phone] Arun Saleh MD Unavailable [phone] Lin Chau Primary Care Provider + Jennie Payne QUALITY CONTROL ASSISTANT Unavailable Unavailab Marion Albert APRN, LAY UP OPERATOR Unavailable +- [phone] Hortencia Galvez DO Primary Care Provider [phone] Reason for Visit * Reason Comments Medication Refill Encounter Details Date Type Department Care Team (Late st Contact Info) Description 02/28/2023 Refill [facility] [address] [place] [address] Calvin Mistry MD [address] [address] Medication Refill Social History Tobacco Use Types Packs/Day Years Used Date Smoking Tobacco: Former Cigarettes 1 33 0 12/19/1983 - 09/13/2016 Smokeless Tobacco: Never Alcohol Use Standard Drinks/Week Comments Yes 3 (1 standard drink = 0.6 oz pur e alcohol) Social PHQ-2 Answer Date Recorded Total Score - Questions 1-9 0 /0 04/2022 Education Answer Date Recorded What is [...] Coronavirus/COVID-19? No / Unsure 02/25/2023 1:57 PM ANALYTICS INTERN documented as of this encounter Miscellaneous Notes * Telephone Encounter - Spring Leung RN - 02/28/2023 12:40 PM ANALYTICS INTERN Medication failed the protocol, provider to review and approve the medication order if appropriate. Requested Prescriptions Pending Prescriptions Disp Refills busPIRone (BUSPAR) 5 MG Tablet [Pharmacy Med Name: busPIRone HCl 5 MG Oral Tablet] 270 Tablet 0 Sig: TAKE 1 TABLET BY MOUTH THREE TIMES DAILY Buspirone (6 Month Refill Only) Protocol Failed - 02/28/2023 12:38 PM Failed - Has an encounter in the past 6 months with a depression or anxiety visit diagnosis Passed - Visit with relevant provider in past 6 months or upcoming 90 days Recent Visits Date Type Provider Dept 02/17/23 Office Visit Allie Hunter MD [facility] [place] Showing recent visits within past 182 days and meeting all other requirements Future Appointments Date Type Provider Dept 04/07/23 Appointment [facility] [place] Showing future appointments within next 90 days and meeting all other requirements Passed - Patient has established therapy with Buspirone for at least 6 months YTICS INTERN documented in this encounter Plan of Treatment Upcoming Encounters Date Type Department Care Team (Late st Contact Info) Description 06/09/2024 2:15 PM ANALYTICS INTERN Procedure Visit [facility] - Neurology - [place] [address] [place] [address] Arun Saleh MD [address] [place] [address] documented as of this encounter Visit Diagnoses Not on filedocumented in this encounter Additional Health Concerns Assessment Noted Time PHQ-9 Depression Total Score: 0 02/18/20 23 12:18 PM CDT documented as of this encounter Care Teams Hot Plate Plywood Press Feeder Relationship Specialty Start Date End Date Allie Hunter MD [address] [place] [address] PCP - General Family Medicine 10/16/15 05/11/23 Lin Chau PAC [address] [place] [address] PCP - General Physician Senior Ios Software Engineer 05/12/23 04/06/24 Hortencia Galvez DO 2 [facility] AN[address]TA [address] [address] PCP - General Family Medicine 04/07/24 Arun Saleh MD [address] [place] [address] Consulting Physician Neurology 06/30/17 Jennie Payne, [facility] Pillar Worker Fishing Captain 05/17/23 11/12/23 Marion Swanson APRN, LAY UP OPERATOR [address] [place] [address] Nurse Practitioner Advanced Practice Nurse 04/01/22 documented as of this encounter
--- OUTSIDE RECORDS SUMMARY | 2024-06-04 13:49 | XMS_ITS | Encounter Summary ---
Author Organization [facility] Address [address] [place] [address] Phone Care Team Providers Care Rack Carrier Name Role Phone Arun Saleh MD Unavailable [phone] Lin Chau Primary Care Provider + Jennie Payne OPTICAL SYSTEMS ENGINEER Unavailable Unavailab Marion Albert APRN, PURCHASING AND CLAIMS SUPERVISOR Unavailable + [phone] Hortencia Galvez DO Primary Care Provider [phone] Reason for Visit * Reason Comments Medication Refill Encounter Details Date Type Department Care Team (Late st Contact Info) Description 10/04/2023 Refill [facility] Medical Group - Family Medicine [facility] [address] [place] [address] Allie Hunter MD [address] [place] [address] Medication Refill Social History Tobacco Use Types [...] often do you attend chur ch or buddhist services? Never 05/27/2023 Do you belong to any clubs o r organizations such as anabaptist groups, unions, fraternal or athletic groups, or [...] Total Score - Questions 1-9 2 11/2023 [facility] Occupat ional [facility] - [...] place to sleep or slept in a assisted (including now)? No 05/27/2023 Education Answer Date [...] Telephone Encounter - Judy Torres RN - 10/05/2023 9:41 AM CDT Medication(s) refilled and signed per [facility] Chronic Medication Refill Standing Order for Pediatricand Adult Patients. Requested Prescriptions Pending Prescriptions Disp Refills atorvastatin (LIPITOR) 40 MG Tablet [Pharmacy Med Name: Atorvastatin Calcium 40 MG Oral Tablet] 90 Tablet 0 Sig: Take 1 tablet by mouth once daily Hmg CoA Reductase Inhibitors Protocol Passed - 10/04/2023 9:59 PM Passed - Visit with relevant provider in past 12 months or upcoming 90 days Recent Visits Date Type Provider Dept 05/12/23 Office Visit Lin Chau PAC [facility] 02/17/23 Office Visit Allie Hunter MD [facility] Showing recent visits within past 365 days and meeting all other requirements Future Appointments Date Type Provider Dept 11/11/23 Appointment Lin Chau PAC [facility] Showing future appointments within next [...] Range Status 11/03/2022 93.7 <130 mg/dL Final Passed - CMP in past 12 months SODIUM Date Value Ref Range Status 08/09/2023 142 136 - 145 mmol/L Final POTASSIUM Date Value Ref Range Status 08/09/2023 4.4 3.5 - 5.1 mmol/L Final CHLORIDE Date Value Ref Range Status 08/09/2023 110 (H) 98 - 107 mmol/L Final CO2, VENOUS Date Value Ref Range Status 08/09/2023 24 22 - 30 mmol/L Final ANION GAP Date Value Ref Range Status 08/09/2023 12.4 <18.0 mmol/L Final GLUCOSE Date Value Ref Range Status 08/09/2023 96 70 - 99 mg/dL Final BUN Date Value Ref Range Status 08/09/2023 16 8 - 26 mg/dL Final CREATININE - POCT Date Value Ref Range Status 10/14/2022 1.0 0.6 - 1.3 mg/dL Final CREATININE, BLOOD Date Value Ref Range Status 08/09/2023 0.96 0.70 - 1.30 mg/dL Final BUN/CREATININE RATIO Date Value Ref Range Status 08/09/2023 17 12 - 20 ratio Final TOTAL PROTEIN Date Value Ref Range Status 08/09/2023 7.4 6.3 - 8.2 g/dL Final ALBUMIN Date Value Ref Range Status 08/09/2023 4.2 3.5 - 5.0 g/dL Final A/G RATIO Date Value Ref Range Status 08/09/2023 1.3 1.0 - 2.2 Final CALCIUM Date Value Ref Range Status 08/09/2023 9.2 8.7 - 10.5 mg/dL Final T BILI Date Value Ref Range Status 08/09/2023 0.4 0.2 - 1.2 mg/dL Final SGOT (AST) Date Value Ref Range Status 08/09/2023 28 5 - 34 U/L Final SGPT (ALT) Date Value Ref Range Status 08/09/2023 24 0 - 55 U/L Final ALKALINE PHOSPHATASE Date Value Ref Range Status 08/09/2023 104 40 - 150 U/L Final GFR, EST. NONAFRICAN Date Value Ref Range Status 08/09/2023 >60 >=60 Final GFR, EST. Date Value Ref Range Status 08/09/2023 >60 >=60 Final GFR, ESTIMATED Date Value Ref Range Status 08/09/2023 >60 >=60 Final Comment: Creatinine Clearance is the preferred criteria for selecting drug dose adjustments in renally impaired patients. The GFR is provided as additional pertinent clinical information. GFR is reported in mL/min/1.73 sq m. Calculation based on the Chronic Kidney Disease Epidemiology Collaboration (CKD- EPI) equation refitwithout adjustment for race. IS THE PATIENT REQUIRED TO BE FASTING? Date Value Ref Range Status 08/09/2023 No Final documented in this encounter Plan of Treatment Upcoming Encounters Date Type Department Care Team (Late st Contact Info) Description 06/09/2024 2:15 PM PROFESSOR OF GRAPHIC DESIGN Procedure Visit [facility] - Neurology [facility] [address] [facility] [place] [id number] Arun Saleh MD #[address] [place] [address] documented as of this encounter Visit Diagnoses Not on filedocumented in this encounter Additional Health Concerns Assessment Noted Time PHQ-9 Depression Total Score: 2 02/08/20 24 9:42 AM PROFESSOR OF GRAPHIC DESIGN documented as of this encounter Care Teams Rack Carrier Relationship Specialty Start Date End Date Lin Chau PAC [address] [place] [address] PCP - General Physician Coal Bagger 05/12/23 04/06/24 Hortencia Galvez DO [address] [address] PCP - General Family Medicine 04/07/24 Arun Saleh MD Consulting Physician Neurology 06/30/17 Jennie Payne LSW [facility] Roof Designer Plow Holder 05/17/23 11/12/23 Marion Swanson APRN, PURCHASING AND CLAIMS SUPERVISOR [address] [place] [address] Nurse Practitioner Advanced Practice Nurse 04/01/22 documented as of this encounter
--- OUTSIDE RECORDS SUMMARY | 2024-06-04 13:49 | XMS_ITS ---
Author Organization [facility] Address [address] [place] [address] Phone Care Team Providers Care Technical Director Name Role Phone Arun Saleh MD Unavailable [phone] Marion Swanson APRN, RETREAD BUILDER Unavailable + [phone] Hortencia Galvez DO Primary Care Provider [phone] [facility] Chronic Condition Monitoring Status:Enrolled (Active) Start date:05/17/2024 Enrollment date:05/17/2024 Related social drivers of health:Social Connections, Tobacco Use, Financial Resource Strain, Stress, Physical Activity, Food Insecurity, Housing Stability, Utilities Continued Care and Services Coordination
--- OUTSIDE RECORDS SUMMARY | 2024-06-04 13:49 | XMS_ITS | Referral Summary ---
Author Organization 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 12/2018 Migraine without aura and wi thout status migrainosus, not intractable 07/13/2018 09/16/2022 Narcotic dependence, in remission ([facility]) 06/1809/16/2022 Former smoker 03/17/2017 09/16/2022 Chronic [...] Hypertension, benign Balanitis 03/01/2012 Overview (07/24/2016): Balanitis Social History Tobacco Use Types Packs/Day Years [...] on file Legal Sex Male 10:21 AM CHILD HEALTH ASSOCIATE Gender Identity Male 05/06/2022 11:56 AM CHILD HEALTH ASSOCIATE Sexual Orientation Straight 05/06/2022 11 :56 AM CHILD HEALTH ASSOCIATE 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 file Not on file Not on file Last Filed Vital Signs Vital Sign Reading Time Taken Comments Blood Pressure 132/88 02/02/2024 3:45 PM CDT Pulse 72 02/02/2024 3:45 PM CDT Temperature 36.4 C (97.5 F) 06/22/2023 12:47 PM CHILD HEALTH ASSOCIATE Respiratory Rate 18 02/02/2024 3:45 PM CDT Oxygen Saturation 97% 02/02/2024 3:45 PM CDT Inhaled Oxygen Concentration - - Weight 90.7 kg (200 lb) 10/14/2023 2:40 PM CDT Height 170.2 cm (5' 7 ) 10/14/2023 2:40 PM CDT Body Mass Index 31.32 10/14/2023 2:40 PM CDT Plan of Treatment Not on file Goals Goal Patient Goal Type Associated Problems Recent Progress Patient-Stated? Author BH-Pain Behavioral Health Worsening( 1:58 PM CDT) No Rhiannon Marie RN Note: to be comfortable to enhance [...] Hep C Ab Non-Reactiv e Non-Reactiv e [facility] Blood specimen (specimen) 01/04/2018 1:51 PM CDT 01/04/2018 6:55 PM CDT Narrative [facility] - 01/04/2018 8:55 PM CDT us Yaneth Lau MD LAB MICROBIOLOGY - GENERAL ORDERABLES Final Result [facility] [address] Department [place] [address] * COLONOSCOPY (10/04/2009 12:00 AM CDT) Anatomical Region Laterality Modality Other Narrative 10/04/2009 12:00 AM CDT Ordered by an unspecified provider. Procedure Note Provider, MD Brittney - 10/04/2009 12:00 AM CDT PROCEDURE REPORT Patient: PRISCILLA SALDANA Account: [id number] Room No: : 1970 Patient Type: [facility] Attend.: Juanito Norris M.D. Admit Date: 10/04/2009 [...] per rectum with heme positive stools in [id number] male. 2) Mobic use. 3) Negative EGD recently. SURGEON: Juanito Norris M.D. INSTRUMENT USED: Cortexica video endoscope. MEDICATIONS: Per anesthesia. FINDINGS: The [...] Health Maintenance Insurance MEDICARE SOLUTIONS MEDICARE SOLUTIONS [facility] MDCR HMO REF MEDICARE SOLUTIONS Care Teams Exterior Work Helper Relationship Specialty Start Date End Date Allie Hunter MD PCP - General 06/08/17 Yakov Friend, RN Registered Nurse 08/31/17 Juan R Ramesh MD [address] [place] [address] [address] Anesthesiologist Pain Management 03/04/22
--- OUTSIDE RECORDS SUMMARY | 2024-06-04 13:50 | XMS_ITS | Encounter Summary ---
Author Organization [facility] Address [address] [place] [address] Phone Care Team Providers Care Alarm Operator Name Role Phone Arun Saleh MD Unavailable [phone] Lin Chau Primary Care Provider + Marion Swanson APRN, BATHHOUSE KEEPER Unavailable + [phone] Hortencia Galvez DO Primary Care Provider [phone] Reason for Visit * Reason Comments Medication Refill Encounter Details Date Type Department Care Team (Late st Contact Info) Description 02/03/2024 Refill [facility] Medical Group - Family Medicine [facility] [address] [place] [address] Allie Hunter MD [address] [place] [address] Medication Refill Social History Tobacco Use Types Packs/Day Years Used Date Smoking Tobacco: Former Cigarettes 1 33 0 12/19/1983 - 09/13/2016 Smokeless Tobacco: Never Alcohol Use Standard Drinks/Week Comments Yes 3 (1 standard drink = 0.6 oz pur e alcohol) Social [facility] Utilities Answer Date Recorded In the past 12 months has [employer] electric, gas, oil, or water company threatened [...] often do you attend chur ch or mormonism services? Never 05/27/2023 Do you belong to any clubs o r organizations such as jainism groups, unions, fraternal or athletic groups, or [...] Total Score - Questions 1-9 2 11/2023 [facility] of Occupat ional [facility] - Occupational Stress Questionnaire Answer Date Recorded [...] Telephone Encounter - Judy Torres RN - 02/04/2024 9:04 AM CDT Last ordered 03/08/23 for 90 tabs only. No recent refills in last 4 months. Pt has upcoming appt 02/09/24. Can discuss with provider then. documented in this encounter Plan of Treatment Upcoming Encounters Date Type Department Care Team (Late st Contact Info) Description 06/09/2024 2:15 PM FITTER/WELDER Procedure Visit [facility] - Neurology [facility] [address] [place] [address] Arun Saleh MD [address] [place] [address] documented as of this encounter Visit Diagnoses Not on filedocumented in this encounter Additional Health Concerns Assessment Noted Time PHQ-9 Depression Total Score: 2 05/27/19 24 9:42 AM FITTER/WELDER documented as of this encounter Care Teams Alarm Operator Relationship Specialty Start Date End Date Lin Chau PAC [address] [place] [address] PCP - General Physician Slip Cover Operator 05/12/23 04/06/24 Hortencia Galvez DO [address] [address] PCP - General Family Medicine 04/07/24 Arun Saleh MD Consulting Physician Neurology 06/30/17 Marion Swanson APRN, BATHHOUSE KEEPER [address] [place] [address] Nurse Practitioner Advanced Practice Nurse 04/01/22 documented as of this encounter
--- OUTSIDE RECORDS SUMMARY | 2024-06-04 13:50 | XMS_ITS | Encounter Summary ---
Author Organization [facility] Address [address] [place] [address] Phone Care Team Providers Care Flight Control Tower Operator Name Role Phone Arun Saleh MD Unavailable [phone] Lin Chau PAC Primary Care Provider + Jennie Payne ELECTROMECHANICAL EQUIPMENT TESTER Unavailable Unavailab Marion Albert APRN, IT CONSULTING MANAGER Unavailable + [phone] Hortencia Galvez DO Primary Care Provider [phone] Reason for Visit * Reason Comments Medication Refill Encounter Details Date Type Department Care Team (Late st Contact Info) Description 11/11/[address] [facility] Medical Group - Family Medicine [facility] [address] [place] [address] Lin Chau, PAC [address] [place] [address] Medication Refill Social History Tobacco Use Types Packs/Day Years Used Date Smoking Tobacco: Former Cigarettes 1 33 0 12/19/1983 - 09/13/2016 Smokeless Tobacco: Never Alcohol Use Standard Drinks/Week Comments Yes 3 (1 standard drink = 0.6 oz pur e alcohol) Social [facility] Utilities Answer Date Recorded In the [...] often do you attend chur ch or baptism services? Never 05/27/2023 Do you belong to [...] Total Score - Questions 1-9 2 11/2023 [facility] of Occupat ional Health - [...] place to sleep or slept in a prison (including now)? No 05/27/2023 Education Answer Date [...] Telephone Encounter - Judy Torres RN - 11/11/2023 11:10 AM CDT Medication failed the protocol, provider to review and approve the medication order if appropriate. Requested Prescriptions Pending Prescriptions Disp Refills atorvastatin (LIPITOR) 40 MG Tablet [Pharmacy Med Name: Atorvastatin Calcium 40 MG Oral Tablet] 90 Tablet 0 Sig: Take 1 tablet by mouth once daily Hmg CoA Reductase Inhibitors Protocol Failed - 11/11/2023 9:54 AM Failed - Lipid panel in past 12 months [...] 11/03/2022 93.7 <130 mg/dL Final Passed - Visit with relevant provider in past 12 months or upcoming 90 days Recent Visits Date Type Provider Dept 05/12/23 Office Visit Lin Chau PAC [facility] 02/17/23 Office Visit [facility] Show[facility] recent visits within past 365 days and meeting all other requirements Future Appointments No visits were found meeting these conditions. Showing future appointments within next 90 days and meeting all other requirements Passed - CMP in past 12 months [...] Value Ref Range Status 08/09/2023 No Final losartan-hydrochlorothiazide (HYZAAR) 100-12.5 MG Tablet [Pharmacy Med Name: Losartan Potassium-HCTZ 100-12.5 MG Oral Tablet] 90 Tablet 0 Sig: Take 1 tablet by mouth once daily ANGIOTENSIN-II RECEPTOR BLOCKERS-DIURETICS COMBO PROTOCOL Passed - 11/11/2023 9:54 AM Passed - Serum potassium on record in past 12 months POTASSIUM Date Value Ref Range Status 08/09/2023 4.4 3.5 - 5.1 mmol/L Final Passed - Serum sodium on record in past 12 months SODIUM Date Value Ref Range Status 08/09/2023 142 136 - 145 mmol/L Final Passed - BP on record in the past year Clinician-entered: BP Readings from Last 3 Encounters: 05/12/23 118/76 04/28/23 134/80 02/17/23 122/70 Patient-entered: No data recorded Passed - Visit with relevant provider in past year or upcoming 90 days Recent Visits Date Type Provider Dept 05/12/23 Office Visit Lin Chau PAC [facility] 02/17/23 Office Visit Allie Hunter MD [facility] Showing recent visits within past 365 days and meeting all other requirements Future Appointments No visits were found meeting these conditions. Showing future appointments within next 90 days and meeting all other requirements Passed - GFR on record in past 12 months GFR, EST. NONAFRICAN Date Value Ref Range Status 08/09/2023 >60 >=60 Final * Telephone Encounter - Judy Torres RN - 11/11/2023 11:09 AM CDT Images from the original note were not included. Atorvastatin Calcium Dispensed Days Supply Quantity Provider Pharmacy ATORVASTATIN 40MG TAB 10/05/2023 90 90 Each Lin Chau PAC [facility] Losartan Potassium-HCTZ Dispensed Days Supply Quantity Provider Pharmacy LOSARTAN/HCT 100-12.5MG TAB 10/05/2023 90 90 Each Lin Chau PAC [facility] documented in this encounter Plan of Treatment Upcoming Encounters Date Type Department Care Team (Late st Contact Info) Description 06/09/2024 2:15 PM TEAR DOWN WORKER Procedure Visit [facility] - Neurology [facility] [address] [place] [address] Arun Saleh MD [address] [place] [address] documented as of this encounter Visit Diagnoses Not on filedocumented in this encounter Additional Health Concerns Assessment Noted Time PHQ-9 Depression Total Score: 2 05/27/19 24 9:42 AM TEAR DOWN WORKER documented as of this encounter Care Teams Flight Control Tower Operator Relationship Specialty Start Date End Date Lin Chau PAC [address] [place] [address] PCP - General Physician Nuclear Physicist 05/12/23 04/06/24 Hortencia Galvez DO 2 [facility] [address] [place] [address] PCP - General Family Medicine 04/07/24 Arun Saleh MD Consulting Physician Neurology 06/30/17 Jennie Payne, ELECTROMECHANICAL EQUIPMENT TESTER [place] [employer] Licensed Final Expense Agents 05/17/23 11/12/23 Marion Swanson, SPINNER TENDER, IT CONSULTING MANAGER [address] [place] [address] Nurse Practitioner Advanced Practice Nurse 04/01/22 documented as of this encounter
--- OUTSIDE RECORDS SUMMARY | 2024-06-04 13:50 | XMS_ITS | Clinical Summary ---
Author Organization [facility] Address [address] [place] [address] Phone Care Team Providers Care Machine Candle Molder Name Role Phone Arun Saleh MD Unavailable [phone] Marion Swanson APRN, SAND MOLDER Unavailable + [phone] Hortencia Galvez DO Primary Care Provider [phone] Allergies No known active allergies Medications traMADol (ULTRAM) 50 MG Tablet Take 1-2 Tabs by mouth every 6 hours as needed for Pain. 90 Tab 8 Active Nerve Stimulator (TENS THERAPY PAIN RELIEF) Device Use as needed for pain 1 Device 0 Active tiZANidine (ZANAFLEX) 2 MG Tablet TAKE 1 TABLET (2 MG TOTAL) BY MOUTH EVERY 8 (EIGHT) HOURS NEEDED FOR MUSCLE SPASMS 0 Active tadalafil (CIALIS) 20 MG Tablet Take 1 Tablet by mouth as needed for Erectile Dysfunction. 30 Tablet 3 Active gabapentin (NEURONTIN) 600 MG Tablet Take 1 Tablet by mouth 3 times daily. 270 Tablet 3 4 Active botulinum Toxin Type A (Botox) 200 units Recon SolnIndications :Chronic migraine w/o aura w/o status migrainosus, not intractable 155 Units by Intramuscular route every 90 days. 1 Each 3 4 Active meloxicam (MOBIC) 15 MG Tablet Take 1 Tablet by mouth daily. 30 Tablet 3 4 Active SUMAtriptan (IMITREX) 100 MG TabletIndicatio ns:Chronic migraine w/o aura w/o status migrainosus, not intractable Take 1 Tablet by mouth once as needed for Migraine. Use as directed. May repeat dose in 2 hours if headache recurs. 10 Tablet 5 4 Active atorvastatin (LIPITOR) 40 MG Tablet Take 1 tablet by mouth once daily 90 Tablet 4 Active busPIRone (BUSPAR) 5 MG Tablet Take 1 Tablet by mouth 3 times daily. 270 Tablet 4 Active Diclofenac Sodium (VOLTAREN) 1 % Gel APPLY 1 GRAM TO PAINFUL AREA 3 TO 4 TIMES PER DAY 100 g 1 4 Active amitriptyline (ELAVIL) 25 MG Tablet Take 1 Tablet by mouth nightly. 90 Tablet 3 4 Active esomeprazole (NexIUM) 40 MG CAPSULE DELAYED RELEASE Take 1 Capsule by mouth daily. 90 Capsule 3 4 Active losartan-hydroc hlorothiazide (HYZAAR) 100-12.5 MG Tablet Take 1 tablet by mouth once daily 90 Tablet 5 Active Erenumab-aooe (Aimovig) 70 MG/ML Solution Auto-injectorIn dications:Chron ic migraine w/o aura w/o status migrainosus, not intractable 70 mg by Subcutaneous route every 28 days. 1 mL 2 5 Active methylPREDNISol one (MEDROL DOSPACK) 4 MG Tablet Therapy PackIndications :Chronic migraine w/o aura w/o status migrainosus, not intractable Use as per instructions on package. 1 Tablet 5 Active Active Problems Problem Noted Date Diagnosed Date Chest pain 05/02/2021 Benign hypertension 05/02/2021 Dyslipidemia 05/02/2021 Narcotic dependence, in remission 07/13/2018 Gastroesophageal reflux disease 07/13/2018 Migraine without aura and wi thout status migrainosus, not intractable 07/13/2018 Psychophysiological insomnia 07/13/2018 Former smoker 03/17/2017 Anxiety 01/22/2016 Chronic pain syndrome 01/22/2016 Resolved Problems Problem Noted Date Diagnosed Date Resolved Date Tobacco use 01/22/2016 03/17/2017 Encounters Date Type Department Care Team Description 05/10/2024 Transcribe Orders [facility] [address] [place] [address] Raghu Rodriguez MD Tendonitis of both rotator cuffs (Primary Dx) 05/09/2024 Results Follow-Up [facility] [address] [place] [address] Hortencia Galvez, DO 04/29/20[facility] [place] [address] Lin Chau PAC Medication Refill 04/21/2024 5:29 PM SENIOR NATIONAL ACCOUNT MANAGER - 04/21/2024 11:59 PM SENIOR NATIONAL ACCOUNT MANAGER [facility] [address] [place] [address] Hortencia Galvez, DO Discharge Disposition: Discharged to home or Selfcare 04/21/2024 Travel 04/10/2024 Results Follow-Up [facility] [address] [place] [address] Hortencia Galvez, 04/07/2024 1:00 PM SENIOR NATIONAL ACCOUNT MANAGER Office Visit [facility] [address] [place] [address] Hortencia Galvez, DO Benign hypertension (Primary Dx); Dyslipidemia; Chronic pain syndrome; Gastroesophageal reflux disease, unspecified whether esophagitis present; Anxiety; Migraine without aura and without status migrainosus, not intractable; Encounter for screening for malignant neoplasm of prostate; Osteoarthritis of right AC (acromioclavicular) joint; Encounter for screening for lung cancer; Skin lesion Discharge Disposition: Discharged to home or Selfcare 04/07/2024 Travel 04/05/2024 [facility] [place] [address] Lin Chau PAC Medication Refill 03/29/2024 Telephone [facility] [address] [place] [address] Hortencia Galvez, from Last 3 Months Immunizations Immunization Administration Dates Next Due Influenza Vaccine, Quadrivalent, PF 11/0 04/2022,02/04/2022,03/26/2021, 020,05/25/2019,01/11/2018,03/17/2017,08/2015 PUR FLU 3+ YRS PRES FREE QUAD IM 01/22/2016 TDAP Vaccine 09/10/2022 Zoster Vaccine Recombinant 09/10/2022,03/31/2022 Family History Medical History Relation Name Comments Depression Brother 1 shad No Known Problems Brother 2 carlton Other-comment Brother 3 cassandra HIV No Known Problems Daughter 1 No Known Problems Daughter 2 Heart Attack Father Cancer Maternal Grandfather No Known Problems Maternal Grandmother Hypertension Mother No Known Problems Paternal Grandfather No Known Problems Paternal Grandmother Leukemia/Lymphoma Sister 1 rosalainda Scoliosis Sister 2 cameron Bipolar Disorder Sister 3 elise Hypertension Sister 3 elise Schizophrenia Sister 3 elise No Known Problems Son Relation Name Status Comments Brother 1 shad Alive Brother 2 carlton Alive Brother 3 cassandra Alive Daughter 1 Alive Daughter 2 Alive Father Alive Maternal Grandfather Maternal Grandmother Mother Paternal Grandfather Paternal Grandmother Sister 1 rosalainda Alive Sister 2 cameron Alive Sister 3 elise Alive Son Alive Social History Tobacco Use Types Packs/Day Years Used Date Smoking Tobacco: Former Cigarettes 1 33 0 12/19/1983 - 09/13/2016 Smokeless Tobacco: Never Tobacco Cessation:Counseling Given: Not Answered Alcohol Use Standard Drinks/Week Comments Yes 3 [...] often do you attend chur ch or quaker services? Never 05/27/2023 Do you belong to [...] Total Score - Questions 1-9 2 11/2023 [facility] - Occupational [...] place to sleep or slept in a fpc (including now)? No 05/27/2023 Education Answer Date [...] on file Sexual Orientation Not on file Last Filed Vital Signs Vital Sign Reading Time Taken Comments Blood Pressure 124/72 04/07/2024 12:56 PM SENIOR NATIONAL ACCOUNT MANAGER Pulse 64 04/07/2024 12:56 PM SENIOR NATIONAL ACCOUNT MANAGER Temperature 36.3 C (97.4 F) 04/07/2024 12:56 PM SENIOR NATIONAL ACCOUNT MANAGER Respiratory Rate 16 04/07/2024 12:56 PM SENIOR NATIONAL ACCOUNT MANAGER Oxygen Saturation 97% 04/07/2024 12:56 PM SENIOR NATIONAL ACCOUNT MANAGER Inhaled Oxygen Concentration - - Weight 94.8 kg (209 lb) 04/07/2024 12:56 PM SENIOR NATIONAL ACCOUNT MANAGER Height 170.2 cm (5' 7 ) 04/07/2024 12:56 PM SENIOR NATIONAL ACCOUNT MANAGER Body Mass Index 32.73 04/07/2024 12:56 PM SENIOR NATIONAL ACCOUNT MANAGER Plan of Treatment Upcoming Encounters Date Type Department Care Team (Late st Contact Info) Description 06/09/2024 2:15 PM SENIOR NATIONAL ACCOUNT MANAGER Procedure Visit [facility] - Neurology [facility] [address] [place] [address] Arun Saleh MD [address] [place] [address] Health Maintenance Due Date Last Done Comments Hepatitis B Immunization (1 of 3 - 19+ 3-dose series) 1988 Cologuard 10/29/2019 Immunochemical Fecal Occult Blood 10/29/2019 Pneumococcal Immunization (50+ years) (1 of 1 - PCV) 10/29/2019 Influenza Immunization (#1) 2023 11/0 04/2022, 02/04/2022, 03/26/2021, Additional history exists SARS-COV-2 Immunization ( season) 2023 02/22/2023, 12/31/2021, 03/05/2021, Additional history exists Lung Cancer Screening 04/21/2025 04/21/2024 , 02/25/2023, 08/06/2021 Colonoscopy 01/02/2026 01/02/2021, 01/02/2021 Colorectal Cancer Screening 01/02/2026 Td Immunization Every 10 Years (Adults With 1 Tdap) 09/10/2032 09/10/2022 Respiratory Syncytial Virus (RSV) Immunization (Adult) (1 - 1-dose 75+ series) 2044 01/02/2021 Hepatitis C Virus (HCV) Screening Completed 01/04/2018 Zoster Immunization Completed 09/10/2022, 2 Meningococcal Immunization (ACWY) Aged Out No longer eligible based on patient's age to complete this topic Rotavirus Immunization Aged Out No lo nger eligible based on patient's age to complete this topic Medical Devices Implanted Type Area News Editor Device Identifier Shelf Expiration Date Model / Serial / Lot Device Clsr 70cm 6fr Angio-Seal Vip .035in Vasc Collagen Valuelink Gw Insertion Shth J Accounts Payable Professional - [id number] Implanted:Qty: 1 on 05/02/2021 by Preethi Jackson MD at [facility] IMPLANT Right: Groin Tippr [id number] 12/17/2021 [id number] / / [id number] Procedures Procedure Name Priority Date/Time Associated Diagnosis Comments EXTERNAL ORTHOPEDIC REFERRAL Routine 05/02/2024 12:00 AM SENIOR NATIONAL ACCOUNT MANAGER Osteoarthritis of right AC (acromioclavicular) joint CT CHEST SCREENING WO Routine 04/21/2024 5:38 PM SENIOR NATIONAL ACCOUNT MANAGER Encounter for screening for lung cancer CBC WITH AUTO DIFFERENTIAL Routine 04/07/2024 1:55 PM SENIOR NATIONAL ACCOUNT MANAGER Benign hypertension Dyslipidemia Chronic pain syndrome Gastroesophageal reflux disease, unspecified whether esophagitis present Anxiety Migraine without aura and without status migrainosus, not intractable LIPID PANEL Routine 04/07/2024 1:55 PM SENIOR NATIONAL ACCOUNT MANAGER Benign hypertension Dyslipidemia Chronic pain syndrome Gastroesophageal reflux disease, unspecified whether esophagitis present Anxiety Migraine without aura and without status migrainosus, not intractable PSA SCREEN Routine 04/07/2024 1:55 PM SENIOR NATIONAL ACCOUNT MANAGER Benign hypertension Dyslipidemia Chronic pain syndrome Gastroesophageal reflux disease, unspecified whether esophagitis present Anxiety Migraine without aura and without status migrainosus, not intractable Encounter for screening for malignant neoplasm of prostate CMP (COMPREHENSIVE METABOLIC PANEL) Routine 04/07/2024 1:55 PM SENIOR NATIONAL ACCOUNT MANAGER Benign hypertension Dyslipidemia Chronic pain syndrome Gastroesophageal reflux disease, unspecified whether esophagitis present Anxiety Migraine without aura and without status migrainosus, not intractable COMPLETE BLOOD COUNT (CBC) WITH DIFF Routine 04/07/2024 1:55 PM SENIOR NATIONAL ACCOUNT MANAGER Benign hypertension Dyslipidemia Chronic pain syndrome Gastroesophageal reflux disease, unspecified whether esophagitis present Anxiety Migraine without aura and without status migrainosus, not intractable HEPATITIS PANEL ACUTE (AHP) Routine 01/04/2018 from Last 3 Months or Most Recently Relevant to Health Maintenance Results * EXTERNAL ORTHOPEDIC REFERRAL (05/02/2024 12:00 AM SENIOR NATIONAL ACCOUNT MANAGER) 05/02/2024 Hortencia Galvez DO OUTPT REFERRALS EXT/INT Final Result SCAN * CT CHEST SCREENING WO (04/21/2024 5:38 PM SENIOR NATIONAL ACCOUNT MANAGER) Anatomical Region Laterality Modality Chest N/A Computed Tomogra phy 04/24/2024 4:30 PM SENIOR NATIONAL ACCOUNT MANAGER Impressions 04/24/2024 4:32 PM SENIOR NATIONAL ACCOUNT MANAGER IMPRESSION: Noncalcified pulmonary nodules measuring up to 3 mm are unchanged. No new lung nodule. Minimal pulmonary emphysema. Moderate-sized hiatal hernia. Lung-RADS category 2: Benign appearance or behavior. Recommendation: Low dose Screening CT of chest in 12 months. Narrative 04/24/2024 4:32 PM SENIOR NATIONAL ACCOUNT MANAGER EXAM DESCRIPTION: CT CHEST SCREENING WO REASON FOR STUDY: Screening CT of the chest in a former smoker with a 33 pack year smoking history. Additional history: Quit 7 years ago. TECHNIQUE: Low dose CT scan of the chest was performed without intravenous contrast using helical scanning technique. The exam extends from the lung apices through the lung bases. Automatic exposure control was used as a dose optimization technique. NOTE: This study was performed for the specific purposes of lung cancer screening and is not an alternative to diagnostic chest CT. The sensitivity for detection of solid visceral lesions is diminished without the use of intravenous contrast. RADIATION DOSE: CT dose index volume (CTDIvol) = 3.62 mGy COMPARISON: CT chest 02/25/2023 FINDINGS: SMOKING RELATED LUNG DISEASE: Minimal pulmonary emphysema. LUNG NODULES: Noncalcified 3 mm nodule in the right lower lobe (image 155) is unchanged. Noncalcified 2 mm nodule in the medial right upper lobe (image 117) is unchanged. No new lung nodule. PLEURAE: No pneumothorax or pleural effusion. MEDIASTINUM/SEVERIANO: No mediastinal or hilar lymphadenopathy within the limitations of a noncontrast exam. Moderate-sized hiatal hernia. HEART: Heart size is normal with no pericardial effusion. CORONARY ARTERY CALCIFICATION: Absent VASCULATURE: No thoracic aortic aneurysm. AXILLAE: No lymphadenopathy. CHEST WALL: No masses. No subcutaneous air. HARDWARE/LINES/TUBES: None. UPPER ABDOMEN: No significant abnormality. MUSCULOSKELETAL: Mild thoracic spondylosis. THIS IS AN ELECTRONICALLY VERIFIED FINAL REPORT 04/24/2024 4:30 PM - Electronically signed by Terry Gleason M.D. LB: ERENDIRA Report ID: [id number] Reading Location: [place] [address] Procedure Note Terry Gleason MD - 04/24/2024 EXAM DESCRIPTION: CT CHEST SCREENING WO REASON FOR STUDY: Screening CT of the chest in a former smoker with a 33 pack year smoking history. Additional history: Quit 7 years ago. TECHNIQUE: Low dose CT scan of the chest was performed without intravenous contrast using helical scanning technique. The exam extends from the lung apices through the lung bases. Automatic exposure control was used as a dose optimization technique. NOTE: This study was performed for the specific purposes of lung cancer screening and is not an alternative to diagnostic chest CT. The sensitivity for detection of solid visceral lesions is diminished without the use of intravenous contrast. RADIATION DOSE: CT dose index volume (CTDIvol) = 3.62 mGy COMPARISON: CT chest 02/25/2023 FINDINGS: SMOKING RELATED LUNG DISEASE: Minimal pulmonary emphysema. LUNG NODULES: Noncalcified 3 mm nodule in the right lower lobe (image 155) is unchanged. Noncalcified 2 mm nodule in the medial right upper lobe (image 117) is unchanged. No new lung nodule. PLEURAE: No pneumothorax or pleural effusion. MEDIASTINUM/SEVERIANO: No mediastinal or hilar lymphadenopathy within the limitations of a noncontrast exam. Moderate-sized hiatal hernia. HEART: Heart size is normal with no pericardial effusion. CORONARY ARTERY CALCIFICATION: Absent VASCULATURE: No thoracic aortic aneurysm. AXILLAE: No lymphadenopathy. CHEST WALL: No masses. No subcutaneous air. HARDWARE/LINES/TUBES: None. UPPER ABDOMEN: No significant abnormality. MUSCULOSKELETAL: Mild thoracic spondylosis. THIS IS AN ELECTRONICALLY VERIFIED FINAL REPORT 04/24/2024 4:30 PM - Electronically signed by Terry Gleason M.D. LB: LB Report ID: [id number] Reading Location: [place] [address] IMPRESSION: Noncalcified pulmonary nodules measuring up to 3 mm are unchanged. No new lung nodule. Minimal pulmonary emphysema. Moderate-sized hiatal hernia. Lung-RADS category 2: Benign appearance or behavior. Recommendation: Low dose Screening CT of chest in 12 months. us Hortencia Galvez DO IMG CT ORDERABLES Final Resul t * (ABNORMAL) CBC WITH AUTO DIFFERENTIAL (04/07/2024 1:55 PM SENIOR NATIONAL ACCOUNT MANAGER) WBC 7.77 4.00 - 12.00 10(3)/mcL 04/07/2024 2:56 PM [facility] RBC 5.23 4.40 - 5.80 10(6)/mcL 04/07/2024 2:56 PM [facility] HEMOGLOBIN (HGB) 13.5 13.0 - 16.5 g/dL 04/07/2024 2:56 PM [facility] HEMATOCRIT (HCT) 42.3 38.0 - 50.0 % 04/07/2024 2:56 PM [facility] MCV 80.9(L) 82.0 - 96.0 fL 04/07/2024 2:56 PM [facility] MCH 25.8(L) 26.0 - 32.0 pg 04/07/2024 2:56 PM [facility] MCHC 31.9 31.0 - 36.0 g/dL 04/07/2024 2:56 PM [facility] PLATELET COUNT 242 140 - 440 10(3)/mcL 04/07/2024 2:56 PM [facility] RDW 14.8 11.8 - 15.5 % 04/07/2024 2:56 PM [facility] MPV 10.4 8.0 - 12.6 fL 04/07/2024 2:56 PM [facility] NEUTROPHILS 60.1 40.0 - 68.0 % 04/07/2024 2:56 PM [facility] LYMPHOCYTES 27.3 19.0 - 49.0 % 04/07/2024 2:56 PM [facility] MONOCYTES 8.2 3.0 - 13.0 % 04/07/2024 2:56 PM [facility] EOSINOPHILS 3.6 0.0 - 8.0 % 04/07/2024 2:56 PM [facility] BASOPHILS 0.8 0.0 - 1.0 % 04/07/2024 2:56 PM [facility] ABSOLUTE NEUTROPHILS 4.67 1.40 - 5.30 10(3)/[facility] 04/07/2024 2:56 PM SENIOR NATIONAL ACCOUNT MANAGER [facility] ABSOLUTE LYMPHOCYTES 2.12 0.90 - 3.30 10(3)/[facility] 04/07/2024 2:56 PM SENIOR NATIONAL ACCOUNT MANAGER [facility] ABSOLUTE MONOCYTES 0.64 0.10 - 0.90 10(3)/[facility] 04/07/2024 2:56 PM SENIOR NATIONAL ACCOUNT MANAGER [facility] ABSOLUTE EOSINOPHIL 0.28 0.00 - 0.50 10(3)/[facility] 04/07/2024 2:56 PM SENIOR NATIONAL ACCOUNT MANAGER [facility] ABSOLUTE BASOPHILS 0.06 0.00 - 0.10 10(3)/[facility] 04/07/2024 2:56 PM SENIOR NATIONAL ACCOUNT MANAGER [facility] NRBC PER 100 WBC 0 04/07/20 2:56 PM SENIOR NATIONAL ACCOUNT MANAGER [facility] Blood Venipuncture / Unknown 04/07/2024 1:55 PM SENIOR NATIONAL ACCOUNT MANAGER 04/07/2024 2:48 PM SENIOR NATIONAL ACCOUNT MANAGER us Hortencia Galvez DO HEMATOLOGY ORDERABLES Final R esult [facility] [address] [place] [address] * PSA SCREEN (04/07/2024 1:55 PM SENIOR NATIONAL ACCOUNT MANAGER) PSA SCREEN, TOTAL 1.08 <4.00 ng/mL 04/07/2024 3:37 PM SENIOR NATIONAL ACCOUNT MANAGER [facility] Blood Venipuncture / Unknown 04/07/2024 1:55 PM SENIOR NATIONAL ACCOUNT MANAGER 04/07/2024 2:48 PM SENIOR NATIONAL ACCOUNT MANAGER Narrative [facility] - 04/07/2024 3:37 PM SENIOR NATIONAL ACCOUNT MANAGER [facility] Total PSA assay is a Chemiluminescent Microparticle Immunoassay (CMIA) for the quantitative determination of total PSA (both free PSA and PSA complexed to [id number]) in human serum. Total PSA values obtained with different assay methods, including Camargo PSA assays, cannot be used interchangeably. Hortencia L Leonor DO CHEMISTRY ORDERABLES Final Re sult Performing Organization Address City/[facility]/ZIP Co de Phone Number [facility] [address] [place] [address] * (ABNORMAL) LIPID PANEL (04/07/2024 1:55 PM SENIOR NATIONAL ACCOUNT MANAGER) CHOLESTEROL 149 <200 mg/dL 04/07/2024 3:20 PM SENIOR NATIONAL ACCOUNT MANAGER [facility] TRIGLYCERIDES 170(H) <150 mg/dL 04/07/2024 3:20 PM SENIOR NATIONAL ACCOUNT MANAGER [facility] HDL CHOLESTEROL 44 >40 mg/dL 3:20 PM SENIOR NATIONAL ACCOUNT MANAGER [facility] LDL 71 <130 mg/dL 04/07/2024 3:20 PM SENIOR NATIONAL ACCOUNT MANAGER [facility] VLDL 34 10 - 50 mg/dL 04/07/2024 3:20 PM SENIOR NATIONAL ACCOUNT MANAGER [facility] CHOL/HDL RATIO 3.4 0.0 - 4.4 04/07/2024 3:20 PM SENIOR NATIONAL ACCOUNT MANAGER [facility] NON-HDL CHOLESTEROL 105 <130 mg/dL 04/07/2024 3:20 PM SENIOR NATIONAL ACCOUNT MANAGER [facility] IS THE PATIENT REQUIRED TO BE FASTING? No 04/07/2024 3:20 PM SENIOR NATIONAL ACCOUNT MANAGER [facility] Blood Venipuncture / Unknown 04/07/2024 1:55 PM SENIOR NATIONAL ACCOUNT MANAGER 04/07/2024 2:47 PM SENIOR NATIONAL ACCOUNT MANAGER us Hortencia L Leonor DO CHEMISTRY ORDERABLES Final Re sult Performing Organization Address City/[facility]/ZIP Co de Phone Number [facility] [address] [place] [address] * (ABNORMAL) CMP (COMPREHENSIVE METABOLIC PANEL) (04/07/2024 1:55 PM SENIOR NATIONAL ACCOUNT MANAGER) SODIUM 142 136 - 145 mmol/L 04/07/2024 3:20 PM SENIOR NATIONAL ACCOUNT MANAGER [facility] POTASSIUM 4.1 3.5 - 5.1 mmol/L 04/07/2024 3:20 PM [facility] CHLORIDE 109(H) 98 - 107 mmol/L 04/07/2024 3:20 PM [facility] CO2, VENOUS 25 22 - 30 mmol/L 04/07/2024 3:20 PM [facility] ANION GAP 12.1 <18.0 mmol/L 04/07/2024 3:20 PM [facility] GLUCOSE 79 70 - 99 mg/dL 04/07/2024 3:20 PM [facility] BUN 13 8 - 26 mg/dL 04/07/2024 3:20 PM [facility] CREATININE, BLOOD 0.96 0.70 - 1.30 mg/dL 04/07/2024 3:20 PM [facility] BUN/CREATININE RATIO 14 12 - 20 ratio 04/07/2024 3:20 PM [facility] TOTAL PROTEIN 7.5 6.3 - 8.2 g/dL 04/07/2024 3:20 PM [facility] ALBUMIN 4.4 3.5 - 5.0 g/dL 04/07/2024 3:20 PM [facility] A/G RATIO 1.4 1.0 - 2.2 04/07/2024 3:20 PM [facility] CALCIUM 9.4 8.7 - 10.5 mg/dL 04/07/2024 3:20 PM [facility] T BILI 0.4 0.2 - 1.2 mg/dL 04/07/2024 3:20 PM [facility] SGOT (AST) 27 5 - 34 U/L 04/07/2024 3:20 PM [facility] SGPT (ALT) 32 0 - 55 U/L 04/07/2024 3:20 PM [facility] ALKALINE PHOSPHATASE 118 40 - 150 U/L 04/07/2024 3:20 PM [facility] IS THE PATIENT REQUIRED TO BE FASTING? No 04/07/2024 3:20 PM SENIOR NATIONAL ACCOUNT MANAGER [facility] GFR, ESTIMATED >60 >=60 04/07/2024 3:20 PM SENIOR NATIONAL ACCOUNT MANAGER [facility] Comment: Creatinine Clearance is the preferred criteria for selecting drug dose adjustments in renally impaired patients. The GFR is provided as additional pertinent clinical information. GFR is reported in mL/min/1.73 sq m. Calculation based on the Chronic Kidney Disease Epidemiology Collaboration (CKD- EPI) equation refit without adjustment for race. GFR, EST. >60 >=60 024 3:20 PM SENIOR NATIONAL ACCOUNT MANAGER [facility] GFR, EST. NONAFRICAN >60 >=60 04/07/2024 3:20 PM SENIOR NATIONAL ACCOUNT MANAGER [facility] Blood Venipuncture / Unknown 04/07/2024 1:55 PM SENIOR NATIONAL ACCOUNT MANAGER 04/07/2024 2:47 PM SENIOR NATIONAL ACCOUNT MANAGER us Hortencia Galvez DO CHEMISTRY ORDERABLES Final Re sult [facility] [address] [place] [address] * HEPATITIS PANEL ACUTE (AHP) (01/04/2018) Blood specimen (specimen) us Yaneth Lau MD HEMATOLOGY ORDERAB LES Final Result from Last 3 Months or Most Recently Relevant to Health Maintenance Insurance MEDICAID [place] MEDICARE C [facility] Advance Directives * Full Code (Latest Code Status on File) Date Activated Date Inactivated Comments 05/01/2021 8:33 PM 05/02/2021 3:55 PM CPR-Full Guero atment: FULL ARREST: Attempt Resuscitation/CPR wit intubation and mechanical ventilation. PRE-ARREST: Use entire range of life support measures to stabilize the patient. Care Teams Machine Candle Molder Relationship Specialty Start Date End Date Hortencia Galvez DO [address] [address] PCP - General Family Medicine 04/07/24 Arun Saleh MD Consulting Physician Neurology 06/30/17 Marion Swanson, REHABILITATION PSYCHOLOGIST, SAND MOLDER [address] [place] [address] Nurse Practitioner Advanced Practice Nurse 04/01/22
[2024-06-04 14:25] VITALS: BP 163/97; PULSE 77; RESP 20; TEMP 37.1; O2SAT 99
--- NOTE | 2024-06-04 17:11 | ED_ITS ---
HPI - Wound/Laceration General Chief Complaint: Wound/Laceration Stated Complaint: cut left middle sharping knive Time Seen by Provider: 06/04/24 17:10 Source: patient Mode of arrival: ambulatory Limitations: no limitations History of Present Illness HPI narrative: This is a 53-year-old male who presents to the ED for chief complaint of left middle finger laceration that occurred just prior to arrival. Patient was trying to sharp tonight when he accidentally slipped and sliced to the end of his left finger. Denies complete avulsion. Denies any further injury. Denies nail involvement. Unsure of tetanus status. Related Data Allergies Allergy/AdvReac Type Severity Reaction Status Date / Time No Known Allergies Allergy Verified 05/04/24 21:45 Review of Systems Review of Systems: All systems as dictated in HPI Exam Narrative: GENERAL: Well-appearing, well-nourished, and in no acute distress. HEAD: Normocephalic, atraumatic. EYES: PERRLA and EOMI. ENT: Nares clear, no rhinorrhea or epistaxis. Mucous membranes moist. Oropharynx without tonsillar hypertrophy exudate or other lesions. NECK: Supple. No adenopathy or masses. CHEST: No respiratory distress. Clear to auscultation. No wheezes rales or rhonchi HEART: Regular rate and rhythm. No murmur heard. Normal peripheral pulses. ABDOMEN: Soft, nontender, nondistended, normal active bowel sounds. MSK: Normal range of motion. No edema. SKIN: 1.5 cm curved, flap laceration to the distal left middle finger. Bleeding controlled on arrival. No involvement of the nail bed. NEURO: Alert and oriented x4. No focal deficits. PSYCH: Normal mood and affect. Course Vital Signs Vital signs: Vital Signs Temperature 98.7 F 06/04/24 14:25 Pulse Rate 77 06/04/24 14:25 Respiratory Rate 20 06/04/24 14:25 Blood Pressure 163/97 H 06/04/24 14:25 Pulse Oximetry 99 06/04/24 14:25 Oxygen Delivery Room Air 06/04/24 14:25 Temperature 98.1 F 06/04/24 18:22 Pulse Rate 74 06/04/24 18:22 Respiratory Rate 18 06/04/24 18:22 Blood Pressure 153/84 H 06/04/24 18:22 Pulse Oximetry 98 06/04/24 18:22 Oxygen Delivery Room Air 06/04/24 14:25 Procedures Laceration Laceration 1: Date: 06/04/24 Time: 17:45 Site: hand (Left middle finger) Size (cm): 1.5 Description: flap Depth: simple, single layer Local Anesthetic: lidocaine 1% (Left middle finger digital block) Amount of anesthesia used (mL): 2 Pre-repair: wound explored, irrigated extensively and deep structures intact ====== Skin Level ====== Skin layer closed with: nylon Size (cm): 5-0 Number of sutures: 4 Technique: simple, interrupted ====== Subcutaneous Layer ====== ====== Muscle Layer ====== ====== Tendon Layer ====== MDM - Wound/Laceration MDM Narrative Medical decision making narrative: This is a 53-year-old male who presents to the ED for chief complaint of left middle finger laceration. Vitals are normal. Exam remarkable for the above. The wound was well cleansed irrigated here in the ED. digital block performed and laceration was primarily closed with the Ethilon sutures. Tdap updated. Pt will be discharged in stable condition. Return precautions given and supportive measures discussed. Pt is understanding and agreeable with plan for discharge and follow-up with PCP. Differential Diagnosis Differential diagnosis: Likely laceration, abrasion and avulsion of skin Discharge Plan Discharge Clinical Impression: Laceration Patient Disposition: Home, Self-Care Condition: Stable Instructions: Antibiotic Form, Care For Your Stitches (ED) Additional Instructions: Keep wound clean and dry. Do not soak, take baths, or swim until wound is completely healed. If any signs of infection such as redness, swelling, increasing pain, drainage of purulent discharge, streaks up your extremity develop, seek medical attention immediately. Followup with your primary care provider in [7] days for suture removal. Patient Language: [place] Islander Follow-up/Referrals: Leonor,Hortencia Fonseca DO [Primary Care Provider] - Time of Disposition: 17:47
--- OUTSIDE RECORDS SUMMARY | 2024-06-04 17:32 | XMS_ITS | Encounter Summary ---
Author Organization [facility] Address [address] [place] [address] Phone Care Team Providers Care Optical Design Engineer Name Role Phone Allie Hunter MD Primary Care Provider [phone] Arun Saleh MD Unavailable [phone] Lin Chau Primary Care Provider + Jennie Payne MANAGER WATER WASTEWATER Unavailable Unavailab Marion Albert APRN, ROOF PAINTER Unavailable +- [phone] Hortencia Galvez DO Primary Care Provider [phone] Reason for Visit * Reason Comments Medication Refill Encounter Details Date Type Department Care Team (Late st Contact Info) Description 05/06/2022 Refill [facility] Medical [facility] - Family Medicine [facility] [address] [place] [address] Allie Hunter MD [address] [place] [address] Medication Refill Social History Tobacco Use Types [...] [place] 05/14/21 Office Visit Allie Hunter MD [facility] [place] Showing recent visits within past 365 days and meeting all other requirements Future Appointments No visits were found meeting these conditions. Showing future appointments within next 90 days and meeting all other requirements THETICS TECHNICIAN documented in this encounter Plan of Treatment Upcoming Encounters Date Type Department Care Team (Late st Contact Info) Description 06/09/2024 2:15 PM PROSTHETICS TECHNICIAN [facility] - [place] [address] [place] [address] Arun Saleh MD [address] [place] [address] documented as of this encounter Visit Diagnoses Not on filedocumented in this encounter Additional Health Concerns Assessment Noted Time PHQ-9 Depression Total Score: 5 10/23/19 22 2:00 PM CDT documented as of this encounter Care Teams Optical Design Engineer Relationship Specialty Start Date End Date Allie Hunter MD [address] [place] [address] PCP - General Family Medicine 10/16/15 05/11/23 Lin Chau PAC [address] [place] [address] PCP - General Physician Porcelain Mixer 05/12/23 04/06/24 Hortencia Galvez, [address] [address] PCP - General Family Medicine 04/07/24 Arun Saleh MD [address] [place] [address] Consulting Physician Neurology 06/30/17 Jennie Payne, MANAGER WATER WASTEWATER [place] Apparel Rental Clerk Seal Skinner 05/17/23 11/12/23 Marion Swanson, MOUNTAIN SERVICES MANAGER, ROOF PAINTER [address] [place] [address] Nurse Practitioner Advanced Practice Nurse 04/01/22 documented as of this encounter
--- OUTSIDE RECORDS SUMMARY | 2024-06-04 17:32 | XMS_ITS | Encounter Summary ---
Author Organization [facility] Address [address] [place] [address] Phone Care Team Providers Care Manager University Name Role Phone Arun Saleh MD Unavailable [phone] Lin Chau PAC Primary Care Provider + Jennie Payne SENIOR SUSTAINABILITY CONSULTANT Unavailable Unavailab Marion Albert APRN, CREDIT COLLECTION SPECIALIST Unavailable + [phone] Hortencia Galvez DO Primary Care Provider [phone] Reason for Visit * Reason Comments Medication Refill Encounter Details Date Type Department Care Team (Late st Contact Info) Description 08/14/2023 Refill [facility] Medical Group - Family Medicine [facility] [address] [place] [address] Lin Chau, PAC [address] [place] [address] Medication Refill Social History Tobacco Use Types Packs/Day Years Used Date Smoking Tobacco: Former Cigarettes 1 33 0 12/19/1983 - 09/13/2016 Smokeless Tobacco: Never Alcohol Use Standard Drinks/Week Comments Yes 3 (1 standard drink = 0.6 oz pur e alcohol) Social [facility] Utilities Answer Date Recorded In the [...] often do you attend chur ch or evangelical services? Never 05/27/2023 Do you belong to any clubs o r organizations such as uatsdin groups, unions, fraternal or athletic groups, or [...] Total Score - Questions 1-9 2 11/2023 [facility] of Occupat ional Health - [...] place to sleep or slept in a fci (including now)? No 05/27/2023 Education Answer Date [...] [place] 02/17/23 [facility] [place] 08/27/22 [facility] recent visits within past 365 days and meeting all other requirements Future Appointments Date Type Provider Dept 11/11/23 Appointment Lin Chau PAC [facility] Show[facility] future appointments within next 90 days and meeting all other requirements documented in this encounter Plan of Treatment Upcoming Encounters Date Type Department Care Team (Late st Contact Info) Description 06/09/2024 2:15 PM RADIOLOGY TECHNOLOGIST Procedure Visit [facility] - Neurology - [place] [address] [place] [address] Arun Saleh MD [address] [place] [address] documented as of this encounter Visit Diagnoses Not on filedocumented in this encounter Additional Health Concerns Assessment Noted Time PHQ-9 Depression Total Score: 2 05/27/19 9:42 AM RADIOLOGY TECHNOLOGIST documented as of this encounter Care Teams Manager University Relationship Specialty Start Date End Date Lin Chau PAC [address] [place] [address] PCP - General Physician Presales Senior Specialist 05/12/23 04/06/24 Hortencia Galvez DO [address] [address] PCP - General Family Medicine 04/07/24 Arun Saleh MD Consulting Physician Neurology 06/30/17 Jennie Payne, SENIOR SUSTAINABILITY CONSULTANT [place] Pen Ruler Operator Wellness Consultant 05/17/23 11/12/23 Marion Swanson APRN, CREDIT COLLECTION SPECIALIST [address] [place] [address] Nurse Practitioner Advanced Practice Nurse 04/01/22 documented as of this encounter
--- OUTSIDE RECORDS SUMMARY | 2024-06-04 17:32 | XMS_ITS | Encounter Summary ---
Author Organization [facility] Address [address] [place] [address] Phone Care Team Providers Care Instrument Repair Specialist Name Role Phone Allie Hunter MD Primary Care Provider [phone] Arun Saleh MD Unavailable [phone] Lin Chau Primary Care Provider + Jennie Payne TURRET LATHE OPERATOR Unavailable Unavailab Marion Albert APRN, REGISTRY NURSE Unavailable +- [phone] Hortencia Galvez DO Primary Care Provider [phone] Reason for Visit * Reason Comments Medication Refill Encounter Details Date Type Department Care Team (Late st Contact Info) Description 09/01/2022 Refill [facility] Medical Group - Family Medicine [facility] [address] [place] [address] Allie Hunter MD [address] [place] [address] Medication Refill Social History Tobacco Use Types [...] [place] 10/22/21 Office Visit Allie [facility] [place] Showing recent visits within past 365 [...] 06/17/22 Office Visit Hao Marley APRN, CNP [facility] [place] 02/24/22 Office Visit Allie Hunter MD [place] 10/22/21 Office Visit Allie Hunter MD [facility] [place] Showing recent visits within past [...] st Contact Info) Description 06/09/2024 2:15 PM DRESSER TENDER Procedure Visit [facility] - Neurology - [place] [address] [facility] [address] Arun Saleh MD [address] [facility] [place] [id number] documented as of this encounter Visit Diagnoses Not on filedocumented in this encounter Additional Health Concerns Assessment Noted Time PHQ-9 Depression Total Score: 5 10/23/19 22 2:00 PM CDT documented as of this encounter Care Teams Instrument Repair Specialist Relationship Specialty Start Date End Date Allie Hunter MD [address] [place] [address] PCP - General Family Medicine 10/16/15 05/11/23 Lin Chau PAC [address] [place] [address] PCP - General Physician Superintendent 05/12/23 04/06/24 Hortencia Galvez DO [address] [address] PCP - General Family Medicine 04/07/24 Arun Saleh MD [address] [place] [address] Consulting Physician Neurology 06/30/17 Jennie Payne, [facility] Senior Tech Manufacturing Engineering Supervisor Mechanic Boilermaking 05/17/23 11/12/23 Marion Swanson APRN, REGISTRY NURSE [address] [place] [address] Nurse Practitioner Advanced Practice Nurse 04/01/22 documented as of this encounter
--- OUTSIDE RECORDS SUMMARY | 2024-06-04 17:32 | XMS_ITS | Encounter Summary ---
Author Organization [facility] Address [address] [place] [address] Phone Care Team Providers Care Event Av Operator Name Role Phone Arun Saleh MD Unavailable [phone] Lin Chau Primary Care Provider + Jennie Payne ORGANIZATIONAL EFFECTIVENESS DIRECTOR Unavailable Unavailab Marion Albert APRN, TREE SCOUT Unavailable + [phone] Hortencia Galvez DO Primary Care Provider [phone] Reason for Visit * Reason Comments Medication Refill Encounter Details Date Type Department Care Team (Late st Contact Info) Description 10/04/2023 Refill [facility] Medical Group - Family Medicine [facility] [address] [place] [address] Allie Hunter MD [address] [place] [address] Medication Refill Social History Tobacco Use Types [...] often do you attend chur ch or taoist services? Never 05/27/2023 Do you belong to any clubs o r organizations such as islam groups, unions, fraternal or athletic groups, or [...] Total Score - Questions 1-9 2 11/2023 [facility] of Occupat ional Health - Occupational Stress [...] place to sleep or slept in a mcfp (including now)? No 05/27/2023 Education Answer Date [...] Dept 05/12/23 Office Visit Lin Chau PAC [facility] [place] 02/17/23 Office Visit Allie Hunter MD [...] st Contact Info) Description 06/09/2024 2:15 PM EXECUTIVE ADMINISTRATIVE ASST Procedure Visit [facility] Group - Neurology [facility] [address] [place] [address] Arun Saleh MD [address] [facility] [place] [address] documented as of this encounter Visit Diagnoses Not on filedocumented in this encounter Additional Health Concerns Assessment Noted Time PHQ-9 Depression Total Score: 2 02/08/20 24 9:42 AM EXECUTIVE ADMINISTRATIVE ASST documented as of this encounter Care Teams Event Av Operator Relationship Specialty Start Date End Date Lin Chau PAC [address] [place] [address] PCP - General Physician Dump Attendant 05/12/23 04/06/24 Hortencia Galvez DO [address] [address] PCP - General Family Medicine 04/07/24 Arun Saleh MD Consulting Physician Neurology 06/30/17 Jennie Payne LSW [place] Combination Technician Screwhead Polisher 05/17/23 11/12/23 Marion Swanson APRN, TREE SCOUT [address] [place] [address] Nurse Practitioner Advanced Practice Nurse 04/01/22 documented as of this encounter
--- OUTSIDE RECORDS SUMMARY | 2024-06-04 17:32 | XMS_ITS | Encounter Summary ---
Author Organization [facility] Address [address] [place] [address] Phone Care Team Providers Care Area Sales Manager Name Role Phone Allie Hunter MD Primary Care Provider [phone] Arun Saleh MD Unavailable [phone] Lin Chau Primary Care Provider + Jennie Payne FOLDER MACHINE OPERATOR Unavailable Unavailab Marion Albert APRN, GOLF CLUB HEAD INSPECTOR AND ADJUSTER Unavailable +- [phone] Hortencia Galvez DO Primary Care Provider [phone] Reason for Visit * Reason Comments Medication Refill Encounter Details Date Type Department Care Team (Late st Contact Info) Description 10/17/2022 Refill [facility] Medical Group - Family Medicine [facility] [address] [place] [address] Allie Hunter MD [address] [place] [address] Medication Refill Social History Tobacco Use Types [...] [place] 06/17/22 Office Visit Hao Marley APRN, HUNTING GUIDE [facility] [place] Showing recent visits within past 182 [...] st Contact Info) Description 06/09/2024 2:15 PM NUTRITION INSTRUCTOR Procedure Visit [facility] - Neurology [facility] [address] [place] [address] Arun Saleh MD [address] [place] [address] documented as of this encounter Visit Diagnoses Not on filedocumented in this encounter Additional Health Concerns Assessment Noted Time PHQ-9 Depression Total Score: 5 10/23/19 22 2:00 PM CDT documented as of this encounter Care Teams Area Sales Manager Relationship Specialty Start Date End Date Allie Hunter MD [address] [place] [address] PCP - General Family Medicine 10/16/15 05/11/23 Lin Chau PAC [address] [place] [address] PCP - General Physician Commercial Decorator 05/12/23 04/06/24 Hortencia Galvez DO [address] [address] PCP - General Family Medicine 04/07/24 Arun Saleh MD [address] [place] [address] Consulting Physician Neurology 06/30/17 Jennie Payne, FOLDER MACHINE OPERATOR [place] Front Desk Manager Dry Cleaning Machine Operator Helper 05/17/23 11/12/23 Marion Swanson APRN, GOLF CLUB HEAD INSPECTOR AND ADJUSTER [address] [place] [address] Nurse Practitioner Advanced Practice Nurse 04/01/22 documented as of this encounter
--- OUTSIDE RECORDS SUMMARY | 2024-06-04 17:32 | XMS_ITS | Encounter Summary ---
Author Organization [facility] Address [address] [place] [address] Phone Care Team Providers Care Solar Manufacturer'S Representative Name Role Phone rAun Saleh MD Unavailable [phone] Lin Chau PAC Primary Care Provider + Jennie Payne GEOTHERMAL PLANT MANAGER Unavailable Unavailab Marion Albert APRN, SUPERVISOR PAINT DEPARTMENT Unavailable + [phone] Hortencia Galvez DO Primary Care Provider [phone] Reason for Visit * Reason Comments Medication Refill Encounter Details Date Type Department Care Team (Late st Contact Info) Description 10/10/2023 Refill [facility] Medical Group - Family Medicine [facility] [address] [place] [address] Lin Chau, PAC [address] [place] [address] Medication Refill Social History Tobacco Use Types Packs/Day Years Used Date Smoking Tobacco: Former Cigarettes 1 33 0 12/19/1983 - 09/13/2016 Smokeless Tobacco: Never Alcohol Use Standard Drinks/Week Comments Yes 3 (1 standard drink = 0.6 oz pur e alcohol) Social [facility] Utilities Answer Date Recorded In [...] often do you attend chur ch or latter day services? Never 05/27/2023 Do you belong to [...] Total Score - Questions 1-9 2 11/2023 [facility] of Occupat ional Health - Occupational Stress [...] Allie Hunter MD [facility] Showing recent visits within past 365 days and meeting all other requirements Future Appointments Date Type Provider Dept 11/11/23 Appointment [facility] future appointments within next 90 days and meeting all other requirements documented in this encounter Plan of Treatment Upcoming Encounters Date Type Department Care Team (Late st Contact Info) Description 06/09/2024 2:15 PM CREDIT CARD CLERK Procedure Visit [facility] - Neurology [facility] [address] [place] [address] Arun Saleh MD [address] [place] [address] documented as of this encounter Visit Diagnoses Not on filedocumented in this encounter Additional Health Concerns Assessment Noted Time PHQ-9 Depression Total Score: 2 05/27/19 24 9:42 AM CREDIT CARD CLERK documented as of this encounter Care Teams Solar Manufacturer'S Representative Relationship Specialty Start Date End Date Lin Chau PAC [address] [place] [address] PCP - General Physician Lead Pharmacy Technician 05/12/23 04/06/24 Hortencia Galvez DO [address] [address] PCP - General Family Medicine 04/07/24 Arun Saleh MD Consulting Physician Neurology 06/30/17 Jennie Payne, GEOTHERMAL PLANT MANAGER [place] Cashier Checker Fruit And Vegetable Classer 05/17/23 11/12/23 Marion Swanson, INDEPENDENT MARKETING CONSULTANT, SUPERVISOR PAINT DEPARTMENT [address] [place] [address] Nurse Practitioner Advanced Practice Nurse 04/01/22 documented as of this encounter
--- OUTSIDE RECORDS SUMMARY | 2024-06-04 17:32 | XMS_ITS | Referral Summary ---
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 12/2018 Migraine without aura and wi thout status migrainosus, not intractable 07/13/2018 09/16/2022 Narcotic dependence, in remission ([facility]) 06/1809/16/2022 Former smoker 03/17/2017 09/16/2022 [...] on file Legal Sex Male 10:21 AM DROPPER TANK STORAGE Gender Identity Male 05/06/2022 11:56 AM DROPPER TANK STORAGE Sexual Orientation Straight 05/06/2022 11 :56 AM DROPPER TANK STORAGE 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 Not on file Not on file Last Filed Vital Signs Vital Sign Reading Time Taken Comments Blood Pressure 132/88 02/02/2024 3:45 PM CDT Pulse 72 02/02/2024 3:45 PM CDT Temperature 36.4 C (97.5 F) 06/22/2023 12:47 PM DROPPER TANK STORAGE Respiratory Rate 18 02/02/2024 3:45 PM CDT [...] Hep C Ab Non-Reactiv e Non-Reactiv e [facility] Blood specimen (specimen) 01/04/2018 1:51 PM CDT 01/04/2018 6:55 PM CDT Narrative [facility] - 01/04/2018 8:55 PM CDT us Yaneth Lau MD LAB MICROBIOLOGY - GENERAL ORDERABLES Final Result [facility] [address] Department [place] [address] * COLONOSCOPY (10/04/2009 12:00 AM CDT) Anatomical Region Laterality Modality Other Narrative 10/04/2009 12:00 AM CDT Ordered by an unspecified provider. Procedure Note Provider, MD Brittney - 10/04/2009 12:00 AM CDT PROCEDURE REPORT Patient: PRISCILLA SALDANA Account: [id number] Room No: : 1970 Patient Type: [facility] Attend.: Juanito Norris M.D. Admit Date: 10/04/2009 [...] per rectum with heme positive stools in [id number] male. 2) Mobic use. 3) Negative EGD recently. SURGEON: Juanito Norris M.D. INSTRUMENT USED: [place] [employer] video endoscope. MEDICATIONS: Per anesthesia. FINDINGS: The [...] Health Maintenance Insurance MEDICARE SOLUTIONS MEDICARE SOLUTIONS [facility] MDCR HMO REF MEDICARE SOLUTIONS Care Teams Steam Setter Relationship Specialty Start Date End Date Allie Hunter MD PCP - General 06/08/17 Yakov Friend, RN Registered Nurse 08/31/17 Juan R Ramesh MD [address] [place] [address] [address] Anesthesiologist Pain Management 03/04/22
--- OUTSIDE RECORDS SUMMARY | 2024-06-04 17:32 | XMS_ITS | Clinical Summary ---
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 12/2018 Migraine without aura and wi thout status migrainosus, not intractable 07/13/2018 09/16/2022 Narcotic dependence, in remission ([facility]) 06/1809/16/2022 Former smoker 03/17/2017 09/16/2022 Chronic [...] on file Legal Sex Male 10:21 AM ADMISSIONS CLINICIAN Gender Identity Male 05/06/2022 11:56 AM ADMISSIONS CLINICIAN Sexual Orientation Straight 05/06/2022 11 :56 AM ADMISSIONS CLINICIAN 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 Not on file Not on file Obstetrics History Last Filed Vital Signs Vital Sign Reading Time Taken Comments Blood Pressure 132/88 02/02/2024 3:45 PM CDT Pulse 72 02/02/2024 3:45 PM CDT Temperature 36.4 C (97.5 F) 06/22/2023 12:47 PM ADMISSIONS CLINICIAN Respiratory Rate 18 02/02/2024 3:45 PM CDT [...] Hep C Ab Non-Reactiv e Non-Reactiv e [facility] Blood specimen (specimen) 01/04/2018 1:51 PM CDT 01/04/2018 6:55 PM CDT Narrative [facility] - 01/04/2018 8:55 PM CDT us Yaneth Lau MD LAB MICROBIOLOGY - GENERAL ORDERABLES Final Result [facility] [address] [place] [address] * COLONOSCOPY (10/04/2009 12:00 AM CDT) Anatomical Region Laterality Modality Other Narrative 10/04/2009 12:00 AM CDT Ordered by an unspecified provider. Procedure Note Provider, MD Brittney - 10/04/2009 12:00 AM CDT PROCEDURE REPORT Patient: PRISCILLA SALDANA Account: [id number] Room No: : 1970 Patient Type: OPA [...] per rectum with heme positive stools in [id number] male. 2) Mobic use. 3) Negative EGD recently. SURGEON: Juanito Norris M.D. INSTRUMENT USED: Apps Geniusn video endoscope. MEDICATIONS: Per anesthesia. FINDINGS: The [...] Relevant to Health Maintenance Insurance MEDICARE [employer] [facility] MEDICARE Address: [address] [place] [address] MEDICARE [employer] [facility] MEDICARE Address: [address] [place] [address] [facility] REF [facility] MEDICARE Address: [address] [place] [address] MEDICARE SOLUTIONS Care Teams Ladle Builder Relationship Specialty Start Date End Date Allie Hunter MD PCP - General 06/08/17 Yakov Friend, RN Registered Nurse 08/31/17 Juan R Ramesh MD [address] [place] [id number] Anesthesiologist Pain Management 03/04/22
--- OUTSIDE RECORDS SUMMARY | 2024-06-04 17:33 | XMS_ITS ---
Author Organization [facility] Address [address] [place] [address] Phone Care Team Providers Care Silk Winding Machine Operator Name Role Phone Arun Saleh MD Unavailable [phone] Marion Swanson APRN, LICENSING COURT MAGISTRATE Unavailable + [phone] Hortencia Galvez DO Primary Care Provider [phone] Malika Chronic Condition Monitoring Status:Enrolled (Active) Start date:05/17/2024 Enrollment date:05/17/2024 Related social drivers of health:Social Connections, Tobacco Use, Financial Resource Strain, Stress, Physical Activity, Food Insecurity, Housing Stability, Utilities Continued Care and Services Coordination
--- OUTSIDE RECORDS SUMMARY | 2024-06-04 17:33 | XMS_ITS | Clinical Summary ---
Author Organization [facility] Address [address] [place] [address] Phone Care Team Providers Care Wood Heel Back Liner Name Role Phone Arun Saleh MD Unavailable [phone] Marion Swanson APRN, PUBLIC RELATIONS SUPERVISOR Unavailable + [phone] Hortencia Galvez DO Primary Care Provider [phone] Allergies No known active allergies Medications traMADol [...] Transcribe Orders [facility] [address] [place] [address] Raghu Rodriguez MD Tendonitis of both rotator cuffs (Primary Dx) 05/09/2024 Results Follow-Up [facility] [address] [place] [address] Hortencia Galvez, DO 04/29/2024 [facility] [address] [place] [address] Lin Chau PAC Medication Refill 04/21/2024 5:29 PM SPINNING LATHE OPERATOR AUTOMATIC - 04/21/2024 11:59 PM SPINNING LATHE OPERATOR AUTOMATIC [facility] [address] [place] [address] Hortencia Galvez, DO Discharge Disposition: Discharged to home or Selfcare 04/21/2024 Travel 04/10/2024 Results Follow-Up [facility] [address] [place] [address] Hortencia Galvez, 04/07/2024 1:00 PM SPINNING LATHE OPERATOR AUTOMATIC Office Visit [facility] [address] [place] [address] Hortencia Galvez, DO Benign hypertension (Primary Dx); Dyslipidemia; Chronic pain syndrome; Gastroesophageal reflux disease, unspecified whether esophagitis present; Anxiety; Migraine without aura and without status migrainosus, not intractable; Encounter for screening for malignant neoplasm of prostate; Osteoarthritis of right AC (acromioclavicular) joint; Encounter for screening for lung cancer; Skin lesion Discharge Disposition: Discharged to home or Selfcare 04/07/2024 Travel 04/05/2024 [facility] [address] [place] [address] Lin Chau PAC Medication Refill 03/29/2024 Telephone [facility] [address] [place] [address] Hortencia Galvez, from Last 3 Months Immunizations [...] often do you attend chur ch or methodist services? Never 05/27/2023 Do you belong to any clubs o r organizations such as presybeterian groups, unions, fraternal or athletic groups, or [...] Total Score - Questions 1-9 2 11/2023 [facility] - Occupational [...] Comments Blood Pressure 124/72 04/07/2024 12:56 PM SPINNING LATHE OPERATOR AUTOMATIC Pulse 64 04/07/2024 12:56 PM SPINNING LATHE OPERATOR AUTOMATIC Temperature 36.3 C (97.4 F) 04/07/2024 12:56 PM SPINNING LATHE OPERATOR AUTOMATIC Respiratory Rate 16 04/07/2024 12:56 PM SPINNING LATHE OPERATOR AUTOMATIC Oxygen Saturation 97% 04/07/2024 12:56 PM SPINNING LATHE OPERATOR AUTOMATIC Inhaled Oxygen Concentration - - Weight 94.8 kg (209 lb) 04/07/2024 12:56 PM SPINNING LATHE OPERATOR AUTOMATIC Height 170.2 cm (5' 7 ) 04/07/2024 12:56 PM SPINNING LATHE OPERATOR AUTOMATIC Body Mass Index 32.73 04/07/2024 12:56 PM SPINNING LATHE OPERATOR AUTOMATIC Plan of Treatment Upcoming Encounters Date Type Department Care Team (Late st Contact Info) Description 06/09/2024 2:15 PM SPINNING LATHE OPERATOR AUTOMATIC Procedure Visit [facility] - Neurology [facility] [address] [place] [address] Arun Saleh MD [address] [place] [address] Health Maintenance Due Date Last [...] this topic Medical Devices Implanted Type Area Ordnance Truck Installation Mechanic Device Identifier Shelf Expiration Date Model / Serial / Lot Device Clsr 70cm 6fr Angio-Seal Vip .035in Vasc Collagen Valuelink Gw Insertion Shth J Licensed Psychiatric Technician - [id number] Implanted:Qty: 1 on 05/02/2021 by Preethi Jackson MD at [facility] IMPLANT Right: Groin Gimahhot [id number] 12/17/2021 [id number] / / [id number] Procedures Procedure Name Priority Date/Time Associated Diagnosis Comments EXTERNAL ORTHOPEDIC REFERRAL Routine 05/02/2024 12:00 AM SPINNING LATHE OPERATOR AUTOMATIC Osteoarthritis of right AC (acromioclavicular) joint CT CHEST SCREENING WO Routine 04/21/2024 5:38 PM SPINNING LATHE OPERATOR AUTOMATIC Encounter for screening for lung cancer CBC WITH AUTO DIFFERENTIAL Routine 04/07/2024 1:55 PM SPINNING LATHE OPERATOR AUTOMATIC Benign hypertension Dyslipidemia Chronic pain syndrome Gastroesophageal reflux disease, unspecified whether esophagitis present Anxiety Migraine without aura and without status migrainosus, not intractable LIPID PANEL Routine 04/07/2024 1:55 PM SPINNING LATHE OPERATOR AUTOMATIC Benign hypertension Dyslipidemia Chronic pain syndrome Gastroesophageal reflux disease, unspecified whether esophagitis present Anxiety Migraine without aura and without status migrainosus, not intractable PSA SCREEN Routine 04/07/2024 1:55 PM SPINNING LATHE OPERATOR AUTOMATIC Benign hypertension Dyslipidemia Chronic pain syndrome Gastroesophageal reflux disease, unspecified whether esophagitis present Anxiety Migraine without aura and without status migrainosus, not intractable Encounter for screening for malignant neoplasm of prostate CMP (COMPREHENSIVE METABOLIC PANEL) Routine 04/07/2024 1:55 PM SPINNING LATHE OPERATOR AUTOMATIC Benign hypertension Dyslipidemia Chronic pain syndrome Gastroesophageal reflux disease, unspecified whether esophagitis present Anxiety Migraine without aura and without status migrainosus, not intractable COMPLETE BLOOD COUNT (CBC) WITH DIFF Routine 04/07/2024 1:55 PM SPINNING LATHE OPERATOR AUTOMATIC Benign hypertension Dyslipidemia Chronic pain syndrome Gastroesophageal reflux disease, unspecified whether esophagitis present Anxiety Migraine without aura and without status migrainosus, not intractable HEPATITIS PANEL ACUTE (AHP) Routine 01/04/2018 from Last 3 Months or Most Recently Relevant to Health Maintenance Results * EXTERNAL ORTHOPEDIC REFERRAL (05/02/2024 12:00 AM SPINNING LATHE OPERATOR AUTOMATIC) 05/02/2024 Hortencia Galvez DO OUTPT REFERRALS EXT/INT Final Result SCAN * CT CHEST SCREENING WO (04/21/2024 5:38 PM SPINNING LATHE OPERATOR AUTOMATIC) Anatomical Region Laterality Modality Chest N/A Computed Tomogra phy 04/24/2024 4:30 PM SPINNING LATHE OPERATOR AUTOMATIC Impressions 04/24/2024 4:32 PM SPINNING LATHE OPERATOR AUTOMATIC IMPRESSION: Noncalcified pulmonary nodules measuring up to 3 mm are unchanged. No new lung nodule. Minimal pulmonary emphysema. Moderate-sized hiatal hernia. Lung-RADS category 2: Benign appearance or behavior. Recommendation: Low dose Screening CT of chest in 12 months. Narrative 04/24/2024 4:32 PM SPINNING LATHE OPERATOR AUTOMATIC EXAM DESCRIPTION: CT CHEST SCREENING WO REASON [...] Terry Gleason M.D. LB: ERENDIRA Report ID: [id number] Reading Location: [place] [address] Procedure Note Terry Gleason MD - 04/24/2024 [...] Terry Gleason M.D. LB: LB Report ID: [id number] Reading Location: [place] [address] IMPRESSION: Noncalcified pulmonary nodules measuring up to 3 mm are unchanged. No new lung nodule. Minimal pulmonary emphysema. Moderate-sized hiatal hernia. Lung-RADS category 2: Benign appearance or behavior. Recommendation: Low dose Screening CT of chest in 12 months. us Hortencia Galvez DO IMG CT ORDERABLES Final Resul t * (ABNORMAL) CBC WITH AUTO DIFFERENTIAL (04/07/2024 1:55 PM SPINNING LATHE OPERATOR AUTOMATIC) WBC 7.77 4.00 - 12.00 10(3)/mcL 04/07/2024 2:56 PM [facility] RBC 5.23 4.40 - 5.80 10(6)/mcL 04/07/2024 2:56 PM [facility] HEMOGLOBIN (HGB) 13.5 13.0 - 16.5 g/dL 04/07/2024 2:56 PM [facility] HEMATOCRIT (HCT) 42.3 38.0 - 50.0 % 04/07/2024 2:56 PM [facility] MCV 80.9(L) 82.0 - 96.0 fL 04/07/2024 2:56 PM [facility] MCH 25.8(L) 26.0 - 32.0 pg 04/07/2024 2:56 PM [facility] MCHC 31.9 31.0 - 36.0 g/dL 04/07/2024 2:56 PM [facility] PLATELET COUNT 242 140 - 440 10(3)/mcL 04/07/2024 2:56 PM [facility] RDW 14.8 11.8 - 15.5 % 04/07/2024 2:56 PM [facility] MPV 10.4 8.0 - 12.6 fL 04/07/2024 2:56 PM [facility] NEUTROPHILS 60.1 40.0 - 68.0 % 04/07/2024 2:56 PM [facility] LYMPHOCYTES 27.3 19.0 - 49.0 % 04/07/2024 2:56 PM [facility] MONOCYTES 8.2 3.0 - 13.0 % 04/07/2024 2:56 PM [facility] EOSINOPHILS 3.6 0.0 - 8.0 % 04/07/2024 2:56 PM [facility] BASOPHILS 0.8 0.0 - 1.0 % 04/07/2024 2:56 PM [facility] ABSOLUTE NEUTROPHILS 4.67 1.40 - 5.30 10(3)/[facility] 04/07/2024 2:56 PM SPINNING LATHE OPERATOR AUTOMATIC [facility] ABSOLUTE LYMPHOCYTES 2.12 0.90 - 3.30 10(3)/[facility] 04/07/2024 2:56 PM SPINNING LATHE OPERATOR AUTOMATIC [facility] ABSOLUTE MONOCYTES 0.64 0.10 - 0.90 10(3)/[facility] 04/07/2024 2:56 PM SPINNING LATHE OPERATOR AUTOMATIC [facility] ABSOLUTE EOSINOPHIL 0.28 0.00 - 0.50 10(3)/[facility] 04/07/2024 2:56 PM SPINNING LATHE OPERATOR AUTOMATIC [facility] ABSOLUTE BASOPHILS 0.06 0.00 - 0.10 10(3)/[facility] 04/07/2024 2:56 PM SPINNING LATHE OPERATOR AUTOMATIC [facility] NRBC PER 100 WBC 0 04/07/20 2:56 PM SPINNING LATHE OPERATOR AUTOMATIC [facility] Blood Venipuncture / Unknown 04/07/2024 1:55 PM SPINNING LATHE OPERATOR AUTOMATIC 04/07/2024 2:48 PM SPINNING LATHE OPERATOR AUTOMATIC us Hortencia Galvez DO HEMATOLOGY ORDERABLES Final R esult [facility] [address] [place] [address] * PSA SCREEN (04/07/2024 1:55 PM SPINNING LATHE OPERATOR AUTOMATIC) PSA SCREEN, TOTAL 1.08 <4.00 ng/mL 04/07/2024 3:37 PM SPINNING LATHE OPERATOR AUTOMATIC [facility] Blood Venipuncture / Unknown 04/07/2024 1:55 PM SPINNING LATHE OPERATOR AUTOMATIC 04/07/2024 2:48 PM SPINNING LATHE OPERATOR AUTOMATIC Narrative [facility] - 04/07/2024 3:37 PM SPINNING LATHE OPERATOR AUTOMATIC [facility] Total PSA assay is a Chemiluminescent Microparticle Immunoassay (CMIA) for the quantitative determination of total PSA (both free PSA and PSA complexed to [id number]) in human serum. Total PSA values obtained with different assay methods, including Camargo PSA assays, cannot be used interchangeably. Hortencia L Leonor DO CHEMISTRY ORDERABLES Final Re sult Performing Organization Address City/[facility]/ZIP Co de Phone Number [facility] [address] [place] [address] * (ABNORMAL) LIPID PANEL (04/07/2024 1:55 PM SPINNING LATHE OPERATOR AUTOMATIC) CHOLESTEROL 149 <200 mg/dL 04/07/2024 3:20 PM SPINNING LATHE OPERATOR AUTOMATIC [facility] TRIGLYCERIDES 170(H) <150 mg/dL 04/07/2024 3:20 PM SPINNING LATHE OPERATOR AUTOMATIC [facility] HDL CHOLESTEROL 44 >40 mg/dL 3:20 PM SPINNING LATHE OPERATOR AUTOMATIC [facility] LDL 71 <130 mg/dL 04/07/2024 3:20 PM SPINNING LATHE OPERATOR AUTOMATIC [facility] VLDL 34 10 - 50 mg/dL 04/07/2024 3:20 PM SPINNING LATHE OPERATOR AUTOMATIC [facility] CHOL/HDL RATIO 3.4 0.0 - 4.4 04/07/2024 3:20 PM SPINNING LATHE OPERATOR AUTOMATIC [facility] NON-HDL CHOLESTEROL 105 <130 mg/dL 04/07/2024 3:20 PM SPINNING LATHE OPERATOR AUTOMATIC [facility] IS THE PATIENT REQUIRED TO BE FASTING? No 04/07/2024 3:20 PM SPINNING LATHE OPERATOR AUTOMATIC [facility] Blood Venipuncture / Unknown 04/07/2024 1:55 PM SPINNING LATHE OPERATOR AUTOMATIC 04/07/2024 2:47 PM SPINNING LATHE OPERATOR AUTOMATIC us Hortencia L Leonor DO CHEMISTRY ORDERABLES Final Re sult Performing Organization Address City/[facility]/ZIP Co de Phone Number [facility] [address] [place] [address] * (ABNORMAL) CMP (COMPREHENSIVE METABOLIC PANEL) (04/07/2024 1:55 PM SPINNING LATHE OPERATOR AUTOMATIC) SODIUM 142 136 - 145 mmol/L 04/07/2024 3:20 PM SPINNING LATHE OPERATOR AUTOMATIC [facility] POTASSIUM 4.1 3.5 - 5.1 mmol/L 04/07/2024 3:20 PM [facility] CHLORIDE 109(H) 98 - 107 mmol/L 04/07/2024 3:20 PM [facility] CO2, VENOUS 25 22 - 30 mmol/L 04/07/2024 3:20 PM [facility] ANION GAP 12.1 <18.0 mmol/L 04/07/2024 3:20 PM [facility] GLUCOSE 79 70 - 99 mg/dL 04/07/2024 3:20 PM [facility] BUN 13 8 - 26 mg/dL 04/07/2024 3:20 PM [facility] CREATININE, BLOOD 0.96 0.70 - 1.30 mg/dL 04/07/2024 3:20 PM [facility] BUN/CREATININE RATIO 14 12 - 20 ratio 04/07/2024 3:20 PM [facility] TOTAL PROTEIN 7.5 6.3 - 8.2 g/dL 04/07/2024 3:20 PM [facility] ALBUMIN 4.4 3.5 - 5.0 g/dL 04/07/2024 3:20 PM [facility] A/G RATIO 1.4 1.0 - 2.2 04/07/2024 3:20 PM [facility] CALCIUM 9.4 8.7 - 10.5 mg/dL 04/07/2024 3:20 PM [facility] T BILI 0.4 0.2 - 1.2 mg/dL 04/07/2024 3:20 PM [facility] SGOT (AST) 27 5 - 34 U/L 04/07/2024 3:20 PM [facility] SGPT (ALT) 32 0 - 55 U/L 04/07/2024 3:20 PM [facility] ALKALINE PHOSPHATASE 118 40 - 150 U/L 04/07/2024 3:20 PM [facility] IS THE PATIENT REQUIRED TO BE FASTING? No 04/07/2024 3:20 PM SPINNING LATHE OPERATOR AUTOMATIC [facility] GFR, ESTIMATED >60 >=60 04/07/2024 3:20 PM SPINNING LATHE OPERATOR AUTOMATIC [facility] Comment: Creatinine Clearance is the preferred criteria for selecting drug dose adjustments in renally impaired patients. The GFR is provided as additional pertinent clinical information. GFR is reported in mL/min/1.73 sq m. Calculation based on the Chronic Kidney Disease Epidemiology Collaboration (CKD- EPI) equation refit without adjustment for race. GFR, EST. >60 >=60 024 3:20 PM SPINNING LATHE OPERATOR AUTOMATIC [facility] GFR, EST. NONAFRICAN >60 >=60 04/07/2024 3:20 PM SPINNING LATHE OPERATOR AUTOMATIC [facility] Blood Venipuncture / Unknown 04/07/2024 1:55 PM SPINNING LATHE OPERATOR AUTOMATIC 04/07/2024 2:47 PM SPINNING LATHE OPERATOR AUTOMATIC us Hortencia Galvez DO CHEMISTRY ORDERABLES Final Re sult [facility] [address] [place] [address] * HEPATITIS PANEL ACUTE (AHP) (01/04/2018) Blood specimen (specimen) us Yaneth Lau MD HEMATOLOGY ORDERAB LES Final Result from Last 3 Months or Most Recently Relevant to Health Maintenance Insurance MEDICAID [place] MEDICARE C [facility] Advance Directives * Full Code (Latest Code Status on File) Date Activated Date Inactivated Comments 05/01/2021 8:33 PM 05/02/2021 3:55 PM CPR-Full Guero atment: FULL ARREST: Attempt Resuscitation/CPR wit intubation and mechanical ventilation. PRE-ARREST: Use entire range of life support measures to stabilize the patient. Care Teams Wood Heel Back Liner Relationship Specialty Start Date End Date Hortencia Galvez DO [address] [address] PCP - General Family Medicine 04/07/24 Arun Saleh MD Consulting Physician Neurology 06/30/17 Marion Swanson, TOOL DRAWING CHECKER, PUBLIC RELATIONS SUPERVISOR [address] [place] [address] Nurse Practitioner Advanced Practice Nurse 04/01/22
--- OUTSIDE RECORDS SUMMARY | 2024-06-04 17:33 | XMS_ITS | Encounter Summary ---
Author Organization [facility] Address [address] [place] [address] Phone Care Team Providers Care Assistant Center Manager Name Role Phone Allie Hunter MD Primary Care Provider [phone] Arun Saleh MD Unavailable [phone] Lin Chau Primary Care Provider + Jennie Payne EXHIBIT SPECIALIST Unavailable Unavailab Marion Albert APRN, SIGN ARTIST Unavailable [phone] Hortencia Galvez DO Primary Care Provider [phone] Reason for Visit * Reason Comments Medication Refill Encounter Details Date Type Department Care Team (Late st Contact Info) Description 03/16/2022 Refill [facility] - Family Medicine [facility] [address] [place] [address] Allie Hunter MD [address] [place] [address] Medication Refill Social History Tobacco Use Types [...] Coronavirus/COVID-19? No / Unsure 02/24/2022 12:49 PM GILL BOX FIXER documented as of this encounter Miscellaneous Notes [...] - Absence of nitrates on med list BOX FIXER documented in this encounter Plan of Treatment Upcoming Encounters Date Type Department Care Team (Late st Contact Info) Description 06/09/2024 2:15 PM GILL BOX FIXER Procedure Visit [facility] [place] [address] [place] [address] Arun Saleh MD [address] [place] [address] documented as of this encounter Visit Diagnoses Not on filedocumented in this encounter Additional Health Concerns Assessment Noted Time PHQ-9 Depression Total Score: 5 10/23/19 22 2:00 PM CDT documented as of this encounter Care Teams Assistant Center Manager Relationship Specialty Start Date End Date Allie Hunter MD [address] [place] [address] PCP - General Family Medicine 10/16/15 05/11/23 Lin Chau PAC [address] [place] [address] PCP - General Physician Dental Biller 05/12/23 04/06/24 Hortencia Galvez DO [address] [address] PCP - General Family Medicine 04/07/24 Arun Saleh MD [address] [place] [address] Consulting Physician Neurology 06/30/17 Jennie Pyane, EXHIBIT SPECIALIST [place] Maid Car Repair Supervisor 05/17/23 11/12/23 Marion Swanson, TIMBER SPOTTER, SIGN ARTIST [address] [place] [address] Nurse Practitioner Advanced Practice Nurse 04/01/22 documented as of this encounter
--- OUTSIDE RECORDS SUMMARY | 2024-06-04 17:33 | XMS_ITS | Encounter Summary ---
Author Organization [facility] Address [address] [place] [address] Phone Care Team Providers Care Border Measurer Name Role Phone Arun Saleh MD Unavailable [phone] Marion Swanson APRN, SPORTS MARKETING SPECIALIST Unavailable + [phone] Hortencia Galvez DO Primary Care Provider [phone] Encounter Details Date Type Department Care Team (Late st Contact Info) Description 05/09/2024 Results Follow-Up [facility] - Family Medicine [facility] [address] [place] [id number] Hortencia Galvez DO [address] [address] Social History Tobacco Use Types Packs/Day Years [...] often do you attend chur ch or mormon services? Never 05/27/2023 Do you belong to any clubs o r organizations such as quaker groups, unions, fraternal or athletic groups, or [...] Total Score - Questions 1-9 2 11/2023 [facility] - Occupational [...] to sleep or slept in a senior living (including now)? No 05/27/2023 Education Answer Date [...] - 05/09/2024 12:38 PM CST Patient aware TIC SURGERY MANAGER documented in this encounter Plan of Treatment Upcoming Encounters Date Type Department Care Team (Late st Contact Info) Description 06/09/2024 2:15 PM PLASTIC SURGERY MANAGER Procedure Visit [facility] - Neurology [facility] [address] [place] [address] Arun Saleh MD [address] [place] [address] documented as of this encounter Visit Diagnoses Not on filedocumented in this encounter Additional Health Concerns Assessment Noted Time PHQ-9 Depression Total Score: 2 05/27/19 24 9:42 AM PLASTIC SURGERY MANAGER documented as of this encounter Care Teams Border Measurer Relationship Specialty Start Date End Date Hortencia Galvez DO [facility] [place] [address] [address] PCP - General Family Medicine 04/07/24 Arun Saleh MD Consulting Physician Neurology 06/30/17 Marion Swanson APRN, SPORTS MARKETING SPECIALIST [address] [place] [address] Nurse Practitioner Advanced Practice Nurse 04/01/22 documented as of this encounter
--- OUTSIDE RECORDS SUMMARY | 2024-06-04 17:33 | XMS_ITS | Encounter Summary ---
Author Organization [facility] Address [address] [place] [address] Phone Care Team Providers Care Offal Baler Name Role Phone Arun Saleh MD Unavailable [phone] Lin Chau Primary Care Provider + Jennie Payne BOOKBINDER APPRENTICE Unavailable Unavailab Marion Albert APRN, OXYGEN EQUIPMENT AIDE Unavailable + [phone] Hortencia Galvez DO Primary Care Provider [phone] Reason for Visit * Reason Comments Medication Refill Encounter Details Date Type Department Care Team (Late st Contact Info) Description 07/20/2023 Refill [facility] Group - Family Medicine - [place] [address] [place] [address] Quyen Murray APRN, BILLING COLLECTIONS SPECIALIST #[address] [address] Medication Refill Social History Tobacco Use Types Packs/Day Years Used Date Smoking Tobacco: Former Cigarettes 1 33 0 12/19/1983 - 09/13/2016 Smokeless Tobacco: Never Alcohol Use Standard Drinks/Week Comments Yes 3 (1 standard drink = 0.6 oz pur e alcohol) Social [facility] Utilities Answer Date Recorded In the past 12 months has e [employer], gas, oil, or water [employer] threatened to shut off services in your [...] often do you attend chur ch or mandaeism services? Never 05/27/2023 Do you belong to [...] Total Score - Questions 1-9 2 11/2023 [facility] - Occupational [...] Dept 05/12/23 Office Visit Lin Chau PAC [facility] [place] 02/17/23 Office Visit [facility]ie [facility] [place] 08/27/22 Office Visit Allie Hunter MD [facility] [place] Showing recent visits within past 365 days and meeting all other requirements Future Appointments No visits were found meeting these conditions. Showing future appointments within next 90 days and meeting all other requirements documented in this encounter Plan of Treatment Upcoming Encounters Date Type Department Care Team (Late st Contact Info) Description 06/09/2024 2:15 PM GASKET INSPECTOR Procedure Visit [facility] - Neurology [facility] [address]2 [place] [address] Arun Saleh MD [address] [place] [address] documented as of this encounter Visit Diagnoses Not on filedocumented in this encounter Additional Health Concerns Assessment Noted Time PHQ-9 Depression Total Score: 2 05/27/19 24 9:42 AM GASKET INSPECTOR documented as of this encounter Care Teams Offal Baler Relationship Specialty Start Date End Date Lin Chau PAC [address] [place] [address] PCP - General Physician Coding Advisor 05/12/23 04/06/24 Hortencia Galvez DO 2 [facility] [address] [place] [address] PCP - General Family Medicine 04/07/24 Arun Saleh MD Consulting Physician Neurology 06/30/17 Jennie Payne, GIULIA[place] Duty Engineer Croze Cutter 05/17/23 11/12/23 Marion Swanson, KINDERGARTEN PARAPROFESSIONAL, OXYGEN EQUIPMENT AIDE [address] [place] [address] Nurse Practitioner Advanced Practice Nurse 04/01/22 documented as of this encounter
--- OUTSIDE RECORDS SUMMARY | 2024-06-04 17:33 | XMS_ITS | Encounter Summary ---
Author Organization [facility] Address [address] [place] [address] Phone Care Team Providers Care Senior Network Engineer Name Role Phone Allie Hunter MD Primary Care Provider [phone] Arun Saleh MD Unavailable +[phone] Lin Chau Primary Care Provider + Jennie Payne CONTINUOUS IMPROVEMENT FACILITATOR Unavailable Unavailab Marion Albert APRN, CUSTOMER CARE ASSISTANT Unavailable +- [phone] Hortencia Galvez DO Primary Care Provider [phone] Reason for Visit * Reason Comments Medication Refill Encounter Details Date Type Department Care Team (Late st Contact Info) Description 07/30/2021 [facility]ill [facility] Med Surg [address] [place] [id number] Allie Hunter MD [address] [place] [address] Medication Refill Social History Tobacco Use Types [...] st Contact Info) Description 06/09/2024 2:15 PM ROTOR BALANCER Procedure Visit [facility] - Neurology [facility] #2 [place] [address] Arun Saleh MD [address] [place] [address] documented as of this encounter Visit Diagnoses Not on filedocumented in this encounter Additional Health Concerns Assessment Noted Time PHQ-9 Depression Total Score: 0 04/25/19 21 2:59 PM ROTOR BALANCER documented as of this encounter Care Teams Senior Network Engineer Relationship Specialty Start Date End Date Allie Hunter MD #2 [facility] [place] [address] PCP - General Family Medicine 10/16/15 05/11/23 Lin Chau PAC [address] [place] [address] PCP - General Physician Statuary Painter 05/12/23 04/06/24 Hortencia Galvez DO [address] [address] PCP - General Family Medicine 04/07/24 Arun Saleh MD [address] [place] [address] Consulting Physician Neurology 06/30/17 Jennie Payne, CONTINUOUS IMPROVEMENT FACILITATOR [place] Information Systems Security Officer Splicer Machine Operator 05/17/23 11/12/23 Marion Swanson, RADIATION PROTECTION SPECIALIST, CUSTOMER CARE ASSISTANT [address] [place] [address] Nurse Practitioner Advanced Practice Nurse 04/01/22 documented as of this encounter
--- OUTSIDE RECORDS SUMMARY | 2024-06-04 17:33 | XMS_ITS | Encounter Summary ---
Author Organization [facility] Address [address] [place] [address] Phone Care Team Providers Care Nurse Chemical Dependency Name Role Phone Allie Hunter MD Primary Care Provider [phone] Arun Saleh MD Unavailable +[phone] Lin Chau Primary Care Provider + Jennie Payne LOG MANAGER Unavailable Unavailab Marion Albert APRN, QA DEVELOPER Unavailable +- [phone] Hortencia Galvez DO Primary Care Provider [phone] Reason for Visit * Reason Comments Medication Refill Encounter Details Date Type Department Care Team (Late st Contact Info) Description 07/22/2022 Refill [facility] - Family Medicine [facility] [address] [place] [address] Allie Hunter MD [address] [place] [address] Medication Refill Social History Tobacco Use Types [...] Coronavirus/COVID-19? No / Unsure 06/26/2022 2:04 PM DISTRICT ATTORNEY documented as of this encounter Miscellaneous Notes [...] st Contact Info) Description 06/09/2024 2:15 PM DISTRICT ATTORNEY Procedure Visit [facility] - [facility] [address] [place] [address] Arun Saleh MD [address] [place] [address] documented as of this encounter Visit Diagnoses Not on filedocumented in this encounter Additional Health Concerns Assessment Noted Time PHQ-9 Depression Total Score: 5 10/23/19 22 2:00 PM CDT documented as of this encounter Care Teams Nurse Chemical Dependency Relationship Specialty Start Date End Date Allie Hunter MD [address] [place] [address] PCP - General Family Medicine 10/16/15 05/11/23 Lin Chau PAC [address] [place] [address] PCP - General Physician Elementary School Art Teacher 05/12/23 04/06/24 Hortencia Galvez DO 2 [facility] [address] [address] PCP - General Family Medicine 04/07/24 Arun Saleh MD [address] [place] [address] Consulting Physician Neurology 06/30/17 Jennie Payne, LOG MANAGER [place] Grab Hooker Search Lead 05/17/23 11/12/23 Marion Swanson, BLOOD OR BLOOD BANK TECHNICIAN, QA DEVELOPER [address] [place] [address] Nurse Practitioner Advanced Practice Nurse 04/01/22 documented as of this encounter
--- OUTSIDE RECORDS SUMMARY | 2024-06-04 17:33 | XMS_ITS | Encounter Summary ---
Author Organization [facility] Address [address] [address] Phone Care Team Providers Care Digital Proofing And Platemaker Name Role Phone Arun Saleh MD Unavailable [phone] Lin Chau PAC Primary Care Provider + Jennie Payne DRAFTER ENGINEERING Unavailable Unavailab Marion Albert APRN, MACHINIST HELPER MARINE Unavailable + [phone] Hortencia Galvez DO Primary Care Provider [phone] Reason for Visit * Reason Comments Medication Refill Encounter Details Date Type Department Care Team (Late st Contact Info) Description 11/11/2023 Refill [facility] - Family Medicine [facility] #2 [place] [address] Lin Chua, PAC [address] [place] [address] Medication Refill Social History Tobacco Use Types Packs/Day Years Used Date Smoking Tobacco: Former Cigarettes 1 33 0 12/19/1983 - 09/13/2016 Smokeless Tobacco: Never Alcohol Use Standard Drinks/Week Comments Yes 3 (1 standard drink = 0.6 oz pur e alcohol) Social [facility] Utilities Answer Date Recorded In the [...] any clubs o r organizations such as zoroastrianism groups, unions, fraternal or athletic groups, or [...] Total Score - Questions 1-9 2 11/2023 [facility] Occupat ional [facility] - Occupational Stress [...] place to sleep or slept in a custodial (including now)? No 05/27/2023 Education Answer Date [...] Emery 02/17/23 Office [facility] Show[facility] recent visits within past 365 days [...] Emery 02/17/23 Office Visit Allie Hunter MD [facility] [place] Showing recent visits within past [...] st Contact Info) Description 06/09/2024 2:15 PM SHEET TESTER Procedure Visit [facility] - Neurology [facility] [address] [place] [address] Arun Saleh MD [address] [place] [address] documented as of this encounter Visit Diagnoses Not on filedocumented in this encounter Additional Health Concerns Assessment Noted Time PHQ-9 Depression Total Score: 2 05/27/19 24 9:42 AM SHEET TESTER documented as of this encounter Care Teams Digital Proofing And Platemaker Relationship Specialty Start Date End Date Lin Chau PAC #2 [facility] [place] [address] PCP - General Physician Mental Health Nurse Practitioner 05/12/23 04/06/24 Hortencia Galvez DO 2 [facility] AN[place]TA SHARMA, [address] [place] [address] PCP - General Family Medicine 04/07/24 Arun Saleh MD Consulting Physician Neurology 06/30/17 Jennie Payne, DRAFTER ENGINEERING [place] Process Coach Wireless Retail Manager 05/17/23 11/12/23 Marion Swanson, TUBER HELPER, MACHINIST HELPER MARINE [address] [place] [address] Nurse Practitioner Advanced Practice Nurse 04/01/22 documented as of this encounter
--- OUTSIDE RECORDS SUMMARY | 2024-06-04 17:33 | XMS_ITS | Encounter Summary ---
Author Organization [facility] Address [address] [place] [address] Phone Care Team Providers Care District Adviser Name Role Phone Allie Hunter MD Primary Care Provider [phone] Arun Saleh MD Unavailable [phone] Lin Chau Primary Care Provider + Jennie Payne DISHWASHER BUSSER Unavailable Unavailab Marion Albert APRN, PEELED POTATO INSPECTOR Unavailable +- [phone] Hortencia Galvez DO Primary Care Provider [phone] Reason for Visit * Reason Comments Medication Refill Encounter Details Date Type Department Care Team (Late st Contact Info) Description 02/28/2023 Refill [facility] [address] [place] [address] Calvin Mistry MD #[address] [address] Medication Refill Social History Tobacco Use Types [...] Coronavirus/COVID-19? No / Unsure 02/25/2023 1:57 PM COMMERCIAL INTERIOR DESIGNER documented as of this encounter Miscellaneous Notes * Telephone Encounter - Spring Leung RN - 02/28/2023 12:40 PM COMMERCIAL INTERIOR DESIGNER Medication failed the protocol, provider to review [...] Dept 02/17/23 Office Visit Allie Hunter MD [facility] [place] Showing recent visits within past 182 days and meeting all other requirements Future Appointments Date Type Provider Dept 04/07/23 Appointment Lin Chau PAC [facility] [place] Showing future appointments within next 90 days and meeting all other requirements Passed - Patient has established therapy with Buspirone for at least 6 months ERCIAL INTERIOR DESIGNER documented in this encounter Plan of Treatment Upcoming Encounters Date Type Department Care Team (Late st Contact Info) Description 06/09/2024 2:15 PM COMMERCIAL INTERIOR DESIGNER Procedure Visit [facility] - Neurology - [place] [address] [place] [address] Arun Saleh MD [address] [place] [address] documented as of this encounter Visit Diagnoses Not on filedocumented in this encounter Additional Health Concerns Assessment Noted Time PHQ-9 Depression Total Score: 0 02/18/20 23 12:18 PM CDT documented as of this encounter Care Teams District Adviser Relationship Specialty Start Date End Date Allie Hunter MD [address] [place] [address] PCP - General Family Medicine 10/16/15 05/11/23 Lin Chau PAC [address] [place] [address] PCP - General Physician Carton Repairer 05/12/23 04/06/24 Hortencia Galvez DO 2 [facility] [address] [address] PCP - General Family Medicine 04/07/24 Arun Saleh MD #[address] [place] [address] Consulting Physician Neurology 06/30/17 Jennie Payne, DISHWASHER [facility] Patcher Sales Support Rep 05/17/23 11/12/23 Marion Swanson APRN, PEELED POTATO INSPECTOR [address] [place] [address] Nurse Practitioner Advanced Practice Nurse 04/01/22 documented as of this encounter
--- OUTSIDE RECORDS SUMMARY | 2024-06-04 17:33 | XMS_ITS | Encounter Summary ---
Author Organization [facility] Address [address] [place] [address] Phone Care Team Providers Care Pipeline Systems Operator Name Role Phone Allie Hunter MD Primary Care Provider [phone] Arun Saleh MD Unavailable [phone] Lin Chau Primary Care Provider + Jennie Payne ICT SALES REPRESENTATIVE Unavailable Unavailab Marion Albert APRN, GEAR INSPECTOR Unavailable +- [phone] Hortencia Galvez DO Primary Care Provider [phone] Reason for Visit * Reason Comments Medication Refill Encounter Details Date Type Department Care Team (Late st Contact Info) Description 02/28/2023 Refill [facility] Medical Group - Family Medicine [facility] [address] [place] [address] Allie Hunter MD [address] [place] [address] Medication Refill Social History Tobacco Use Types [...] Coronavirus/COVID-19? No / Unsure 02/25/2023 1:57 PM GAS FITTER documented as of this encounter Miscellaneous Notes * Telephone Encounter - Spring Leung RN - 02/28/2023 12:40 PM GAS FITTER Medication failed the protocol, provider to review [...] Emery 06/17/22 Office Visit Hao Marley APRN, BACK TENDER CYLINDER [facility] [place] Showing recent visits within past 365 days and meeting all other requirements Future Appointments Date Type Provider Dept 04/07/23 Appointment Lin Chau, FARZAD [facility] [place] Showing future appointments within next 90 [...] Dept 02/17/23 Office Visit Allie Hunter MD [facility] [place] 08/27/22 Office Visit Allie Hunter MD [facility] [place] 06/26/22 Office Visit Allie Hunter MD [facility] [place] 06/17/22 Office Visit Hao Marley, FISCAL MANAGER, BACK TENDER CYLINDER [facility] [place] Showing recent visits within past 365 days and meeting all other requirements Future Appointments Date Type Provider Dept 04/07/23 Appointment Lin Chau, PAC [facility] [place] Showing future appointments within next 90 days [...] Range Status 11/03/2022 93.7 <130 mg/dL Final FITTER documented in this encounter Plan of Treatment Upcoming Encounters Date Type Department Care Team (Late st Contact Info) Description 06/09/2024 2:15 PM GAS FITTER Procedure Visit [facility] - Neurology [facility] [address] [place] [address] Arun Saleh MD [address] [place] [address] documented as of this encounter Visit Diagnoses Not on filedocumented in this encounter Additional Health Concerns Assessment Noted Time PHQ-9 Depression Total Score: 0 02/18/20 23 12:18 PM CDT documented as of this encounter Care Teams Pipeline Systems Operator Relationship Specialty Start Date End Date Allie Hunter MD #[address] [place] [address] PCP - General Family Medicine 10/16/15 05/11/23 Lin Chau, [facility] #2 [place] [address] PCP - General Physician Platform Material Handler Manager 05/12/23 04/06/24 Hortencia Galvez DO 2 [facility] [address] [address] PCP - General Family Medicine 04/07/24 Arnu Saleh MD #[address] [place] [address] Consulting Physician Neurology 06/30/17 Jennie Payne, GIULIANA [place] Training And Documentation Specialist Rotary Envelope Machine Operator 05/17/23 11/12/23 Marion Swanson APRN, GEAR INSPECTOR [address] [place] [address] Nurse Practitioner Advanced Practice Nurse 04/01/22 documented as of this encounter
--- OUTSIDE RECORDS SUMMARY | 2024-06-04 17:33 | XMS_ITS | Encounter Summary ---
Author Organization [facility] Address [address] [place] [address] Phone Care Team Providers Care Facepiece Line Supervisor Name Role Phone Arun Saleh MD Unavailable [phone] Lin Chau Primary Care Provider + Marion Swanson APRN, MANNEQUIN MOLD MAKER Unavailable + [phone] Hortencia Galvez DO Primary Care Provider [phone] Reason for Visit * Reason Comments Medication Refill Encounter Details Date Type Department Care Team (Late st Contact Info) Description 02/03/2024 Refill [facility] - Family Medicine [facility] #2 [place] [address] Allie Hunter MD [address] [place] [address] Medication Refill Social History Tobacco Use Types Packs/Day Years Used Date Smoking Tobacco: Former Cigarettes 1 33 0 12/19/1983 - 09/13/2016 Smokeless Tobacco: Never Alcohol Use Standard Drinks/Week Comments Yes 3 (1 standard drink = 0.6 oz pur e alcohol) Social [facility] Utilities Answer Date Recorded In the past 12 months has [employer], gas, oil, or water company threatened [...] any clubs o r organizations such as roman catholic groups, unions, fraternal or athletic groups, or [...] Total Score - Questions 1-9 2 11/2023 [facility] Occupat ional [facility] - Occupational Stress Questionnaire Answer Date Recorded [...] place to sleep or slept in a intermediate (including now)? No 05/27/2023 Education Answer Date [...] st Contact Info) Description 06/09/2024 2:15 PM IRRIGATOR VALVE PIPE Procedure Visit [facility] - Neurology [facility] #2 [place] [address] Arun Saleh MD [address] [place] [address] documented as of this encounter Visit Diagnoses Not on filedocumented in this encounter Additional Health Concerns Assessment Noted Time PHQ-9 Depression Total Score: 2 05/27/19 24 9:42 AM IRRIGATOR VALVE PIPE documented as of this encounter Care Teams Facepiece Line Supervisor Relationship Specialty Start Date End Date Lin Chau PAC [address] [place] [address] PCP - General Physician Public Stenographer 05/12/23 04/06/24 Hortencia Galvez DO [address] [address] PCP - General Family Medicine 04/07/24 Arun Saleh MD Consulting Physician Neurology 06/30/17 Marion Swanson APRN, MANNEQUIN MOLD MAKER [address] [place] [address] Nurse Practitioner Advanced Practice Nurse 04/01/22 documented as of this encounter
--- OUTSIDE RECORDS SUMMARY | 2024-06-04 17:33 | XMS_ITS | Encounter Summary ---
Author Organization [facility] Address [address] [place] [address] Phone Care Team Providers Care Hog Ringer Name Role Phone Arun Saleh MD Unavailable [phone] Lin Chau Primary Care Provider + Jennie Payne TRADING ANALYST Unavailable Unavailab Marion Albert APRN, ACCOUNTING SPECIALIST Unavailable + [phone] Hortencia Galvez DO Primary Care Provider [phone] Reason for Visit * Reason Comments Medication Refill Encounter Details Date Type Department Care Team (Late st Contact Info) Description 07/09/2023 Refill [facility] Medical Group - Family Medicine [facility] #2 [place] [address] Allie Hunter MD [address] [place] [address] Medication Refill Social History Tobacco Use Types [...] often do you attend chur ch or cheondoism services? Never 05/27/2023 Do you belong to any clubs o r organizations such as orthodoxy groups, unions, fraternal or athletic groups, or [...] place to sleep or slept in a retirement (including now)? No 05/27/2023 Education Answer Date [...] Dept 05/12/23 Office Visit Lin Chau PAC [facility] [place] 02/17/23 [facility] Visit [facility] Showing recent visits within past 365 days [...] st Contact Info) Description 06/09/2024 2:15 PM PROCESS MOLD TECHNICIAN Procedure Visit [facility] - Neurology [facility] #2 [place] [address] Arun Saleh MD [address] [place] [address] documented as of this encounter Visit Diagnoses Not on filedocumented in this encounter Additional Health Concerns Assessment Noted Time PHQ-9 Depression Total Score: 2 05/27/19 9:42 AM PROCESS MOLD TECHNICIAN documented as of this encounter Care Teams Hog Ringer Relationship Specialty Start Date End Date Lin Chau PAC [address] [place] [address] PCP - General Physician Base Cloth Inspector 05/12/23 04/06/24 Hortencia Galvez, 2 [facility] [address] [address] PCP - General Family Medicine 04/07/24 Arun Saleh MD Consulting Physician Neurology 06/30/17 Jennie Payne, TRADING ANALYST [place] Auto Detailer Special Tax Auditor 05/17/23 11/12/23 Marion Swanson, GASKET NOTCHER, ACCOUNTING SPECIALIST [address] [place] [address] Nurse Practitioner Advanced Practice Nurse 04/01/22 documented as of this encounter
[2024-06-04] MEDS: TETANUS,DIPHTHERIA,AC PERTUSSIS ADULT (0.5 ML) BOOSTRIX IM (17:59)
[2024-06-04 18:22] VITALS: BP 153/84; PULSE 74; RESP 18; TEMP 36.7; O2SAT 98
== END 2024-06-04 18:24 | disposition home or self-care (01) ==
PROVIDERS: Emergency Provider Physician Assistant; PCP Student in an Organized Health Care Education/Training Program
DX: S61.213A Laceration without foreign body of left middle finger without damage to nail, initial encounter (principal); Z23 Encounter for immunization; W26.0XXA Contact with knife, initial encounter
CPT/HCPCS: 12001; 90471; 90715; 99282